=== PATIENT | male | born 1955 | race Hispanic/Latino ===

== ENCOUNTER 2021-03-29 01:33 | Inpatient (IN) | payer SELFPAY ==
[2021-03-29] MEDS ORDERED: HYDROmorphone 1 MG/1 ML INJ IV NR (02:02)
[2021-03-29] MEDS ORDERED: ONDANSETRON 4 MG/2 ML INJ IV NR (02:02)
--- NOTE | 2021-03-29 02:10 | Emergency Department Report ---
ED Abdominal Pain HPI - General Chief Complaint: Abdominal Pain Stated Complaint: ABD PAIN PUI?: No Time Seen by Provider: 03/29/21 02:01 Source: patient, family, EMS Mode of arrival: Stretcher Limitations: Other - History of Present Illness Initial Comments: Patient is a 66-year-old male who presents emergency room with complaints of generalized abdominal pain. Patient states it started at 1030. Patient states the pain is worsening. Patient states the pain is severe and is a 10 out of 10. Patient states that the patient also had nausea and vomiting. Patient states he was running complaint and his pain instantly started. Patient denies constipation. Patient denies blood in vomitus. Patient denies recent travel. Patient denies recent international travel. Patient denies exposure to the novel coronavirus. Patient denies sick contacts. Patient denies fever and chills. Patient denies cough. Patient denies diarrhea. Patient denies coming in contact with anybody with symptoms of the novel coronavirus. MD Complaint: abdominal pain -: Sudden Location: diffuse Radiation: none Migration to: no migration Severity: severe Severity scale (0 -10): 10 Quality: stabbing Consistency: constant Improves With: rest Worsens With: vomiting, movement, other (Palpation) Associated Symptoms: nausea, vomiting. denies: diarrhea, fever, chills, constipation, dysuria, hematemesis, hematochezia, melena, hematuria, anorexia, syncope - Related Data Home Medications Medication Instructions Recorded Confirmed Last Taken Amiodarone [Cordarone 200 MG TAB] 100 mg PO DAILY 03/29/21 03/29/21 03/28/21 Allergies Allergy/AdvReac Type Severity Reaction Status Date / Time No Known Allergies Allergy Verified 03/29/21 02:38 ED Review of Systems ROS: Stated complaint: ABD PAIN Other details as noted in HPI Constitutional: denies: chills, fever Eyes: denies: eye pain, eye discharge, vision change ENT: denies: ear pain, throat pain Respiratory: denies: cough, shortness of breath, wheezing Cardiovascular: denies: chest pain, palpitations Endocrine: no symptoms reported Gastrointestinal: as per HPI, abdominal pain, nausea, vomiting. denies: diarrhea Genitourinary: denies: urgency, dysuria Musculoskeletal: denies: back pain, joint swelling, arthralgia Skin: denies: rash, lesions Neurological: denies: headache, weakness, paresthesias Psychiatric: denies: anxiety, depression Hematological/Lymphatic: denies: easy bleeding, easy bruising ED Past Medical Hx - Past Medical History Previous Medical History?: Yes Hx Hypertension: Yes Additional medical history: Atrial fibrillation - Surgical History Past Surgical History?: No - Family History Family history: no significant - Social History Smoking Status: Never Smoker Substance Use Type: None - Medications Home Medications: Home Medications Medication Instructions Recorded Confirmed Last Taken Type Amiodarone [Cordarone 200 MG TAB] 100 mg PO DAILY 03/29/21 03/29/21 03/28/21 History ED Physical Exam - General Limitations: No Limitations General appearance: alert, in no apparent distress - Head Head exam: Present: atraumatic, normocephalic - Eye Eye exam: Present: normal appearance - ENT ENT exam: Present: mucous membranes moist - Neck Neck exam: Present: normal inspection - Respiratory Respiratory exam: Present: normal lung sounds bilaterally. Absent: respiratory distress, wheezes, rales - Cardiovascular Cardiovascular Exam: Present: regular rate, normal rhythm. Absent: systolic murmur, diastolic murmur, rubs, gallop - GI/Abdominal GI/Abdominal exam: Present: soft, tenderness, normal bowel sounds - Rectal Rectal exam: Present: deferred - Extremities Exam Extremities exam: Present: normal inspection - Back Exam Back exam: Present: normal inspection - Neurological Exam Neurological exam: Present: alert, oriented X3 - Psychiatric Psychiatric exam: Present: normal affect, normal mood - Skin Skin exam: Present: warm, dry, intact, normal color. Absent: rash ED Course Vital Signs 03/29/21 03/29/21 03/29/21 02:20 02:30 03:01 Temperature Pulse Rate 83 71 75 Respiratory 17 21 17 Rate Blood Pressure 184/87 184/87 Blood Pressure [Left] O2 Sat by Pulse 97 97 89 Oximetry 03/29/21 03/29/21 03/29/21 03:25 03:31 04:01 Temperature 97.7 F Pulse Rate 70 71 74 Respiratory 15 17 20 Rate Blood Pressure 173/103 173/103 Blood Pressure 184/87 [Left] O2 Sat by Pulse 94 88 93 Oximetry 03/29/21 03/29/21 03/29/21 04:31 05:01 05:31 Temperature Pulse Rate 80 96 H 93 H Respiratory 21 18 17 Rate Blood Pressure 173/103 173/103 173/103 Blood Pressure [Left] O2 Sat by Pulse 95 86 83 L Oximetry 03/29/21 03/29/21 06:01 06:31 Temperature Pulse Rate 88 102 H Respiratory 18 18 Rate Blood Pressure 173/103 129/66 Blood Pressure [Left] O2 Sat by Pulse 86 86 Oximetry - Reevaluation(s) Reevaluation #1: Patient states his abdominal pain is little better. Patient dates his nausea is better. 03/29/21 03:08 Reevaluation #2: I discussed all results with patient. I discussed plan of care with patient. Patient agrees with plan of care and admission. Patient to be admitted to the hospitalist service. Patient will be placed on a nicardipine drip for blood pressure management. Patient will be given Zofran for nausea. 03/29/21 04:10 - Consultations Consultation #1: I discussed with Dr. De Anda, vascular surgery. Dr. De Anda wants patient admitted and placed on nicardipine drip to bring the blood pressure down. 03/29/21 04:05 Consultation #2: Hospitalist consulted for admission. Hospitalist to admit patient. 03/29/21 04:11 ED Medical Decision Making - Lab Data Result diagrams: 03/29/21 02:17 03/29/21 02:17 - Radiology Data Radiology results: report reviewed CT ABDOMEN AND PELVIS WITH CONTRAST INDICATION: Abdominal Pain, back pain CONTRAST: 100 cc Omnipaque 300 IV COMPARISON: None available. All CT scans at this location are performed using CT dose reduction for ALARA by means of automated exposure control. FINDINGS: Prominent lumbar degenerative changes are seen. Mild loss of height of the L4 vertebral body is likely old. Lung bases show moderate atelectatic changes. I cannot exclude mild pneumonitis. No pneumoperitoneum is seen. Mild fatty infiltration of the liver is noted without obvious focal lesion. Liver is mildly enlarged and has a length of 19.2 cm. Spleen is not enlarged. Gallstones are seen without obvious acute change. No biliary dilatation is noted. I see no abnormalities of the pancreas, adrenals, or kidneys. No urinary obstructive changes are seen. No evidence of bowel obstruction is noted. Appendix is not visualized. Laboratory changes are seen. No free fluid is noted. Visualized portions of the mid to lower descending aorta show a moderate dissection with opacification of both lumens to some degree but more prominently in the larger lumen. Continues below the diaphragm to the mid aortic level immediately below the level of the renal arteries. Visualized portions of the proximal to mid descending aorta do not show evidence of dissection. The dissection appears to extend slightly into the proximal segment of the superior mesenteric artery but this is well opacified. The larger of the 2 lumens appears to supply the celiac axis and the smaller of the 2 lumens appears to be the main supply for the superior mesenteric artery and also supply the renal arteries bilaterally. The inferior mesenteric artery is opacified but is below the level of the dissection. 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 Good flow is seen distally. IMPRESSION: 1. Dissection of the visualized portions of the descending thoracic aorta and upper to mid abdominal aorta as above 2. Small area of dissection of a dilated left common iliac artery 3. Good blood flow is seen to all major vessels 4. Cholelithiasis without acute change seen - Medical Decision Making Patient is a 66-year-old male that presents emergency room with complaints of generalized abdominal pain. Patient states his abdominal pain started after getting upset. Patient also complained of nausea and vomiting. Patient found to have high blood pressure patient patient has a history of high blood pressure that is diet controlled and atrial fibrillation that is controlled on amiodarone. Patient had labs done which were essentially unremarkable. Patient had a CT scan of the abdomen with IV contrast and it shows a thoracic abdominal aortic dissection. Patient's CT also showed adequate blood flow in all the subsidiary arteries. The radiologist called me with the stat report. After the C T came back, I discussed the case with vascular surgery and vascular surgery gave recommendations. Vascular surgery recommends admission and placed on a nicardipine drip for blood pressure management. Respiratory recommends admission to the general medicine team. Patient admitted to the hospital service for further evaluation and treatment. Prior to admission, the patient was placed on nicardipine. Patient was given Zofran and Dilaudid for pain. Critical care time documented due to the multiple reassessments, prolonged time at the bedside, interpretation of diagnostics and labs. - Differential Diagnosis Abdominal pain, anxiety, nausea, vomiting, gastroenteritis, Critical Care Time: Yes Critical care time in (mins) excluding proc time.: 35 Critical care attestation.: If time is entered above; I have spent that time in minutes in the direct care of this critically ill patient, excluding procedure time. Critical Care Time: 35 minutes ED Disposition Clinical Impression: Aortic dissection Qualifiers: Aortic location: thoracoabdominal aorta Qualified Code(s): I71.03 - Dissection of thoracoabdominal aorta Abdominal pain Qualifiers: Abdominal location: generalized Qualified Code(s): R10.84 - Generalized abdominal pain Nausea & vomiting Qualifiers: Vomiting type: unspecified Vomiting Intractability: intractable Qualified Code(s): R11.2 - Nausea with vomiting, unspecified Disposition: 09 ADMITTED INPATIENT Is pt being admited?: Yes Does the pt Need Aspirin: No Condition: Critical Time of Disposition: 04:14
[2021-03-29 02:34] LABS: Basophils % (Auto) 0.1 % (0.0-1.8); Eosinophils % (Auto) 0.1 % (0.0-4.3); Hematocrit 42.9 % (35.5-45.6); Hemoglobin 14.6 gm/dl (11.8-15.2); Lymphocytes # (Auto) 1.3 K/mm3 (1.2-5.4); Lymphocytes % (Auto) 8.5 % (13.4-35.0); Mean Corpuscular HGB Conc 34 % (32-34); Mean Corpuscular Volume 91 fl (84-94); Monocytes # (Auto) 1.1 K/mm3 (0.0-0.8); Monocytes % (Auto) 7.1 % (0.0-7.3); Platelet Count 144 K/mm3 (140-440); Red Cell Distribution Width 13.5 % (13.2-15.2)
[2021-03-29 02:57] LABS: Alanine Aminotransferase 19 units/L (7-56); Albumin 4.4 g/dL (3.9-5); BUN/Creatinine Ratio 16; Blood Urea Nitrogen 16 mg/dL (9-20); Hemolysis Index 11
[2021-03-29 02:59] LABS: Bilirubin,Direct < 0.2 mg/dL (0-0.2)
--- NOTE | 2021-03-29 03:48 | Cat Scan Report ---
CT ABDOMEN AND PELVIS WITH CONTRAST INDICATION: Abdominal Pain, back pain CONTRAST: 100 cc Omnipaque 300 IV COMPARISON: None available. All CT scans at this location are performed using CT dose reduction for ALARA by means of automated e xposure control. FINDINGS: Prominent lumbar degenerative changes are seen. Mild loss of height of the L4 vertebral bod y is likely old. Lung bases show moderate atelectatic changes. I cannot exclude mild pneumonitis. No pneumoperitoneum is seen. Mild fatty infiltration of the liver is noted without obvious focal lesi on. Liver is mildly enlarged and has a length of 19.2 cm. Spleen is not enlarged. Gallstones are seen without obvious acute change. No biliary dilatation is noted. I see no abnormalities of the pancreas , adrenals, or kidneys. No urinary obstructive changes are seen. No evidence of bowel obstruction is noted. Appendix is not visualized. Laboratory changes are seen. No free fluid is noted. Visualized portions of the mid to lower descending aorta show a moderate dissection with opacificatio n of both lumens to some degree but more prominently in the larger lumen. Continues below the diaphra gm to the mid aortic level immediately below the level of the renal arteries. Visualized portions of the proximal to mid descending aorta do not show evidence of dissection. The dissection appears to ex tend slightly into the proximal segment of the superior mesenteric artery but this is well opacified. The larger of the 2 lumens appears to supply the celiac axis and the smaller of the 2 lumens appears to be the main supply for the superior mesenteric artery and also supply the renal arteries bilatera lly. The inferior mesenteric artery is opacified but is below the level of the dissection. There is a neurysmal dilatation of the left common iliac artery to a diameter of 2.3 cm and this area also appea rs to show a short segment of dissection along the anterior aspect. Good flow is seen distally. IMPRESSION: 1. Dissection of the visualized portions of the descending thoracic aorta and upper to mid abdominal aorta as above 2. Small area of dissection of a dilated left common iliac artery 3. Good blood flow is seen to all major vessels 4. Cholelithiasis without acute change seen IMPORTANT FINDING: Time of Communication (RAIL SWITCH OPERATOR/CDT): 0240 Licensed Practitioner Receiving Report: Dr. Delong Signer Name: Jose Liu MD Signed: 03/29/2021 3:44 AM Workstation Name: [id number]
[2021-03-29] MEDS ORDERED: niCARdipine DRIP 40 MG/200 ML BAG IV ONE (04:06)
[2021-03-29] MEDS ORDERED: ONDANSETRON 4 MG/2 ML INJ IV ONE (04:08)
[2021-03-29] MEDS ORDERED: ACETAMINOPHEN 325 MG TAB PO PRN (04:44)
[2021-03-29] MEDS ORDERED: ALBUTEROL 2.5 MG/3 ML NEBU IH PRN (04:44)
[2021-03-29] MEDS ORDERED: oxyCODONE /ACETAMINOPHEN 5-325MG TAB PO PRN (04:44)
[2021-03-29] MEDS ORDERED: ONDANSETRON 4 MG/2 ML INJ IV PRN (04:44)
--- NOTE | 2021-03-29 04:51 | History and Physical Report ---
History of Present Illness Date of examination: 03/29/21 Date of admission: 03/29/21 Chief complaint: Abdominal pain History of present illness: 66-year-old male with past medical history of hypertension was brought to the emergency room because of generalized abdominal pain since 0. Patient states the pain is worsening. Patient states the pain is severe and is a 10 out of 10. Patient states that the patient also had nausea and vomiting. Patient states he was running complaint and his pain instantly started. Patient denies constipation. Patient denies blood in vomitus. In the emergency room patient had a CT scan of the abdomen and pelvis which indio wed dissection of the visualized portion of the mid and lower descending thoracic aorta and upper to mid abdominal aorta. A small area of dissection of dilated late common iliac artery. Good blood flow is seen in to all major vessels. Subsequently Case was discussed with vascular surgeon Dr. Coronado who recommended to put the patient in ICU. We will put the patient on a Cardene drip. Vascular surgeon will see the patient for possible intervention in the morning. Case discussed with critical care Dr. Sesay Past History Past Medical History: atrial fib, hypertension Medications and Allergies Allergies Allergy/AdvReac Type Severity Reaction Status Date / Time No Known Allergies Allergy Verified 03/29/21 02:38 Active Meds: Active Medications Nicardipine/Sodium Chloride (Cardene Drip 40 Mg/200 Ml) 40 mg in 200 mls @ 25 mls/hr IV ONCE ONE; Protocol Stop: 03/29/21 12:05 Last Admin: 03/29/21 04:33 Dose: 5 mg/hr, 25 mls/hr Documented by: Review of Systems All systems: negative Gastrointestinal: abdominal pain, nausea, vomiting Exam - Constitutional Vitals: Temp Pulse Resp BP Pulse Ox 97.7 F 70 20 184/87 94 03/29/21 03:25 03/29/21 03:25 03/29/21 04:01 03/29/21 03:25 03/29/21 04:01 General appearance: Present: no acute distress, well-nourished - EENT Eyes: Present: PERRL ENT: hearing intact, clear oral mucosa - Neck Neck: Present: supple, normal ROM - Respiratory Respiratory effort: normal Respiratory: bilateral: CTA - Cardiovascular Heart Sounds: Present: S1 & S2. Absent: rub, click - Extremities Extremities: pulses symmetrical, No edema Peripheral Pulses: within normal limits - Abdominal General gastrointestinal: Present: soft, tender, non-distended, normal bowel sounds Male genitourinary: Present: normal - Integumentary Integumentary: Present: clear, warm, dry - Musculoskeletal Musculoskeletal: gait normal, strength equal bilaterally - Psychiatric Psychiatric: appropriate mood/affect, intact judgment & insight - Neurologic Neurologic: CNII-XII intact, moves all extremities Results - Labs CBC & Chem 7: 03/29/21 02:17 03/29/21 02:17 Labs: Laboratory Last Values WBC 15.1 K/mm3 (4.5-11.0) H 03/29/21 02:17 RBC 4.70 M/mm3 (3.65-5.03) 03/29/21 02:17 Hgb 14.6 gm/dl (11.8-15.2) 03/29/21 02:17 Hct 42.9 % (35.5-45.6) 03/29/21 02:17 MCV 91 fl (84-94) 03/29/21 02:17 MCH 31 pg (28-32) 03/29/21 02:17 MCHC 34 % (32-34) 03/29/21 02:17 RDW 13.5 % (13.2-15.2) 03/29/21 02:17 Plt Count 144 K/mm3 (140-440) 03/29/21 02:17 Lymph % (Auto) 8.5 % (13.4-35.0) L 03/29/21 02:17 [place] % (Auto) 7.1 % (0.0-7.3) 03/29/21 02:17 Eos % (Auto) 0.1 % (0.0-4.3) 03/29/21 02:17 Baso % (Auto) 0.1 % (0.0-1.8) 03/29/21 02:17 Lymph # (Auto) 1.3 K/mm3 (1.2-5.4) 03/29/21 02:17 [place] # (Auto) 1.1 K/mm3 (0.0-0.8) H 03/29/21 02:17 Eos # (Auto) 0.0 K/mm3 (0.0-0.4) 03/29/21 02:17 Baso # (Auto) 0.0 K/mm3 (0.0-0.1) 03/29/21 02:17 Seg Neutrophils % 84.2 % (40.0-70.0) H 03/29/21 02:17 Seg Neutrophils # 12.7 K/mm3 (1.8-7.7) H 03/29/21 02:17 Sodium 140 mmol/L (137-145) 03/29/21 02:17 Potassium 4.0 mmol/L (3.6-5.0) 03/29/21 02:17 Chloride 102.4 mmol/L (98-107) 03/29/21 02:17 Carbon Dioxide 25 mmol/L (22-30) 03/29/21 02:17 Anion Gap 17 mmol/L 03/29/21 02:17 BUN 16 mg/dL (9-20) 03/29/21 02:17 Creatinine 1.0 mg/dL (0.8-1.3) 03/29/21 02:17 Estimated GFR > 60 ml/min 03/29/21 02:17 BUN/Creatinine Ratio 16 % 03/29/21 02:17 Glucose 179 mg/dL (75-100) H 03/29/21 02:17 Calcium 9.0 mg/dL (8.4-10.2) 03/29/21 02:17 Total Bilirubin 0.50 mg/dL (0.1-1.2) 03/29/21 02:17 Direct Bilirubin < 0.2 mg/dL (0-0.2) 03/29/21 02:17 Indirect Bilirubin 0.3 mg/dL 03/29/21 02:17 AST 21 units/L (5-40) 03/29/21 02:17 ALT 19 units/L (7-56) 03/29/21 02:17 Alkaline Phosphatase 74 units/L (35-129) 03/29/21 02:17 Total Protein 7.2 g/dL (6.3-8.2) 03/29/21 02:17 Albumin 4.4 g/dL (3.9-5) 03/29/21 02:17 Albumin/Globulin Ratio 1.6 % 03/29/21 02:17 Lipase 13 units/L (13-60) 03/29/21 02:17 - Imaging and Cardiology CT scan - abdomen: report reviewed Assessment and Plan VTE prophylaxis?: Mechanical Plan of care discussed with patient/family: Yes - Patient Problems (1) Aortic dissection Current Visit: Yes Status: Acute Qualifiers: Aortic location: thoracoabdominal aorta Qualified Code(s): I71.03 - Dissection of thoracoabdominal aorta Plan to address problem: Admit the patient to the ICU. N.p.o. Half-normal saline at the rate of 100 cc/h. We will put the patient on nicardipine drip. We consulted vascular surgeon to see the patient for possible intervention. We also consulted critical care evaluation. We will monitor the patient closely. Recheck CBC BMP in the morning. Prognosis is guarded (2) Hypertension Current Visit: Yes Status: Acute Plan to address problem: Put the patient on nicardipine drip. We will monitor the blood pressure pressure closely. We also continue home medication (3) Abdominal pain Current Visit: Yes Status: Acute Qualifiers: Abdominal location: generalized Qualified Code(s): R10.84 - Generalized abdominal pain Plan to address problem: NPO. IV fluid half-normal saline at the rate of 100 cc/h. Pepcid 20 mg IV every 12 hours. Zofran 4 mg IV every 6 hours as needed. Dilaudid 0.5 mg IV every 3 hours as needed (4) Nausea & vomiting Current Visit: Yes Status: Acute Qualifiers: Vomiting type: unspecified Vomiting Intractability: intractable Qualified Code(s): R11.2 - Nausea with vomiting, unspecified Plan to address problem: NPO. Half-normal saline at the rate of 100 cc/h. Pepcid 20 mg IV every 12 hours. Zofran 4 mg IV every 6 hours as needed (5) Full code status Current Visit: Yes Status: Acute Plan to address problem: Patient is a full code. Prognosis is guarded (6) DVT prophylaxis Current Visit: Yes Status: Acute Plan to address problem: SCD for DVT prophylaxis. Pepcid 20 mg IV every 12 hours for GI prophylaxis
[2021-03-29] MEDS ORDERED: SODIUM CHLORIDE 0.45% 1000 ML 1,000 ML IV SCH (05:00)
--- NOTE | 2021-03-29 08:48 | Progress Note ---
Assessment and Plan Assessment and plan: --Descending aortic dissection Current Visit: Yes Status: Acute Admit the patient to the ICU. Continue nicardipine drip. vascular surgeon consulted by admitting physician Critical care consulted by admitting physician Stat CTA chest and CTA abdomen to evaluate thoracic and abdominal aorta --Hypertension Current Visit: Yes Status: Acute Patient is on nicardipine drip. Maintain blood pressures less than 120/80 And heart rate less than 70/min --History of atrial fibrillation; Current Visit: Yes Status: Chronic On amiodarone at home Patient is currently n.p.o. status --Abdominal pain Current Visit: Yes Status: Acute Pain management IV fluids IV Protonix and supportive care --Nausea & vomiting Current Visit: Yes Status: Acute Antiemetics, Protonix --Obesity; BMI 32.9; Current Visit: Yes Status: Chronic Patient may need weight reduction when he is medically stable --Full code status --DVT prophylaxis Current Visit: Yes Status: Acute SCD We will closely monitor the patient and adjust the management as needed Plan of care reviewed with the patient and his nurse Follow vascular evaluation recommendations History Interval history: I have seen and examined the patient at the bedside in ER awaiting ICU room assignment Patient's chart and medications reviewed Patient feels better has no new complaints slightly anxious Vital signs noted Hospitalist Physical - Constitutional Vitals: Temp Pulse Resp BP Pulse Ox 97.7 F 102 H 18 129/66 86 03/29/21 03:25 03/29/21 06:31 03/29/21 06:31 03/29/21 06:31 03/29/21 06:31 General appearance: Present: no acute distress, well-nourished - EENT Eyes: Present: PERRL, EOM intact - Neck Neck: Present: supple, normal ROM - Respiratory Respiratory effort: normal Respiratory: bilateral: diminished, negative: rales, rhonchi, wheezing - Cardiovascular Rhythm: regular Heart Sounds: Present: S1 & S2 - Extremities Extremities: no ischemia, No edema - Abdominal General gastrointestinal: soft, non-tender, non-distended, normal bowel sounds - Integumentary Integumentary: Present: clear, warm - Psychiatric Psychiatric: appropriate mood/affect, cooperative - Neurologic Neurologic: CNII-XII intact, moves all extremities Results - Labs CBC & Chem 7: 03/29/21 02:17 03/29/21 02:17 Labs: Laboratory Last Values WBC 15.1 K/mm3 (4.5-11.0) H 03/29/21 02:17 RBC 4.70 M/mm3 (3.65-5.03) 03/29/21 02:17 Hgb 14.6 gm/dl (11.8-15.2) 03/29/21 02:17 Hct 42.9 % (35.5-45.6) 03/29/21 02:17 MCV 91 fl (84-94) 03/29/21 02:17 MCH 31 pg (28-32) 03/29/21 02:17 MCHC 34 % (32-34) 03/29/21 02:17 RDW 13.5 % (13.2-15.2) 03/29/21 02:17 Plt Count 144 K/mm3 (140-440) 03/29/21 02:17 Lymph % (Auto) 8.5 % (13.4-35.0) L 03/29/21 02:17 [place] % (Auto) 7.1 % (0.0-7.3) 03/29/21 02:17 Eos % (Auto) 0.1 % (0.0-4.3) 03/29/21 02:17 Baso % (Auto) 0.1 % (0.0-1.8) 03/29/21 02:17 Lymph # (Auto) 1.3 K/mm3 (1.2-5.4) 03/29/21 02:17 [place] # (Auto) 1.1 K/mm3 (0.0-0.8) H 03/29/21 02:17 Eos # (Auto) 0.0 K/mm3 (0.0-0.4) 03/29/21 02:17 Baso # (Auto) 0.0 K/mm3 (0.0-0.1) 03/29/21 02:17 Seg Neutrophils % 84.2 % (40.0-70.0) H 03/29/21 02:17 Seg Neutrophils # 12.7 K/mm3 (1.8-7.7) H 03/29/21 02:17 Sodium 140 mmol/L (137-145) 03/29/21 02:17 Potassium 4.0 mmol/L (3.6-5.0) 03/29/21 02:17 Chloride 102.4 mmol/L (98-107) 03/29/21 02:17 Carbon Dioxide 25 mmol/L (22-30) 03/29/21 02:17 Anion Gap 17 mmol/L 03/29/21 02:17 BUN 16 mg/dL (9-20) 03/29/21 02:17 Creatinine 1.0 mg/dL (0.8-1.3) 03/29/21 02:17 Estimated GFR > 60 ml/min 03/29/21 02:17 BUN/Creatinine Ratio 16 % 03/29/21 02:17 Glucose 179 mg/dL (75-100) H 03/29/21 02:17 Calcium 9.0 mg/dL (8.4-10.2) 03/29/21 02:17 Total Bilirubin 0.50 mg/dL (0.1-1.2) 03/29/21 02:17 Direct Bilirubin < 0.2 mg/dL (0-0.2) 03/29/21 02:17 Indirect Bilirubin 0.3 mg/dL 03/29/21 02:17 AST 21 units/L (5-40) 03/29/21 02:17 ALT 19 units/L (7-56) 03/29/21 02:17 Alkaline Phosphatase 74 units/L (35-129) 03/29/21 02:17 Total Protein 7.2 g/dL (6.3-8.2) 03/29/21 02:17 Albumin 4.4 g/dL (3.9-5) 03/29/21 02:17 Albumin/Globulin Ratio 1.6 % 03/29/21 02:17 Lipase 13 units/L (13-60) 03/29/21 02:17 Active Medications - Current Medications Current Medications: Generic Name Dose Route Start Last Admin Trade Name Freq PRN Reason Stop Dose Admin Acetaminophen 650 mg 03/29/21 04:44 Acetaminophen 325 Mg Tab PO Q4H PRN Pain MILD(1-3)/Fever >100.5/AVILA Albuterol 2.5 mg 03/29/21 04:44 Albuterol 2.5 Mg/3 Ml Nebu IH Q4HRT PRN Shortness Of Breath Albuterol/Ipratropium 1 ampul 03/29/21 08:00 Ipratropium/Albuterol Sulfate 3 Ml Ampul.Neb IH Q6HRT BRIAN Famotidine 20 mg 03/29/21 10:00 Famotidine 20 Mg/2 Ml Inj IV BID BRIAN Hydromorphone HCl 0.5 mg 03/29/21 04:44 Hydromorphone 1 Mg/1 Ml Inj IV Q3H PRN Pain , Severe (7-10) Nicardipine/Sodium Chloride 40 mg in 200 mls @ 25 mls/hr 03/29/21 04:06 03/29/21 06:41 Cardene Drip 40 Mg/200 Ml IV 03/29/21 12:05 5 mg/hr ONCE ONE 25 mls/hr Titration Protocol 5 MG/HR Sodium Chloride 1,000 mls @ 100 mls/hr 03/29/21 05:00 Nacl 0.45% 1000 Ml IV DIRECT BRIAN Ondansetron HCl 4 mg 03/29/21 04:44 Ondansetron 4 Mg/2 Ml Inj IV Q8H PRN Nausea And Vomiting Oxycodone/Acetaminophen 1 tab 03/29/21 04:44 Oxycodone /Acetaminophen 5-325mg Tab PO Q6H PRN Pain, Moderate (4-6) Sodium Chloride 10 ml 03/29/21 10:00 Sodium Chloride 0.9% 10 Ml Flush Syringe IV BID BRIAN Sodium Chloride 10 ml 03/29/21 04:44 Sodium Chloride 0.9% 10 Ml Flush Syringe IV PRN PRN LINE FLUSH
[2021-03-29] MEDS: IPRATROPIUM/ALBUTEROL SULFATE 3 ML AMPUL.NEB IH SCH ×2 (09:08→14:16)
[2021-03-29] MEDS: FAMOTIDINE 20 MG/2 ML INJ IV SCH ×2 (10:07→23:00)
--- NOTE | 2021-03-29 14:28 | Consultation ---
History of Present Illness - Reason for Consult Consult date: 03/29/21 Aortic Dissection Requesting physician: MALVIN LAYNE III - History of Present Illness The patient is a 66-year-old male traveling here from [place] who was running to the airport to catch his plane however his attempts were unsuccessful. He became upset, which likely elevated his blood pressure, and he developed severe abdominal pain. He was eventually transported to a hotel and then eventually to the emergency department secondary to his severe abdominal and back pain. Initially he had a CTA of his abdomen pelvis which demonstrated an aortic dissection involving the descending aorta and extending to the level of the renal arteries. There was no evidence of vascular compromise in all visceral vessels appeared to have adequate flow. The patient denies any nausea, vomiting, diarrhea, bright red blood per rectum, or melena. He underwent a CTA of his chest which confirms there is no involvement of the ascending aorta. There is slight extension into the left subclavian artery however it does not extend distally and there is no compromise of flow into the vertebral artery. At this time he continues to complain of some abdominal and lower back pain but he has no additional complaints at this time. Past History Past Medical History: atrial fib, hypertension Past Surgical History: No surgical history Social history: . denies: smoking Family history: no significant family history Medications and Allergies Allergies Allergy/AdvReac Type Severity Reaction Status Date / Time No Known Allergies Allergy Verified 03/29/21 02:38 Home Medications Medication Instructions Recorded Confirmed Last Taken Type Amiodarone [Cordarone 200 MG TAB] 100 mg PO DAILY 03/29/21 03/29/21 03/28/21 History Active Meds: Active Medications Acetaminophen (Acetaminophen 325 Mg Tab) 650 mg PO Q4H PRN PRN Reason: Pain MILD(1-3)/Fever >100.5/AVILA Albuterol (Albuterol 2.5 Mg/3 Ml Nebu) 2.5 mg IH Q4HRT PRN PRN Reason: Shortness Of Breath Albuterol/Ipratropium (Ipratropium/Albuterol Sulfate 3 Ml Ampul.Neb) 1 ampul IH Q6HRT [facility] Last Admin: 03/29/21 14:16 Dose: 1 ampul Documented by: Famotidine (Famotidine 20 Mg/2 Ml Inj) 20 mg IV BID [facility] Last Admin: 03/29/21 10:07 Dose: 20 mg Documented by: Hydromorphone HCl (Hydromorphone 1 Mg/1 Ml Inj) 0.5 mg IV Q3H PRN PRN Reason: Pain , Severe (7-10) Sodium Chloride (Nacl 0.45% 1000 Ml) 1,000 mls @ 100 mls/hr IV DIRECT BRIAN Ondansetron HCl (Ondansetron 4 Mg/2 Ml Inj) 4 mg IV Q8H PRN PRN Reason: Nausea And Vomiting Oxycodone/Acetaminophen (Oxycodone /Acetaminophen 5-325mg Tab) 1 tab PO Q6H PRN PRN Reason: Pain, Moderate (4-6) Sodium Chloride (Sodium Chloride 0.9% 10 Ml Flush Syringe) 10 ml IV BID BRIAN Last Admin: 03/29/21 10:07 Dose: 10 ml Documented by: Sodium Chloride (Sodium Chloride 0.9% 10 Ml Flush Syringe) 10 ml IV PRN PRN PRN Reason: LINE FLUSH Review of Systems All systems: negative Exam - Constitutional Vitals: Temp Pulse Resp BP Pulse Ox 97.7 F 105 H 19 141/88 94 03/29/21 03:25 03/29/21 12:14 03/29/21 12:14 03/29/21 12:14 03/29/21 12:14 General appearance: Present: no acute distress - Neck Neck: Present: supple - Respiratory Respiratory effort: normal - Cardiovascular Heart rate: 90 Rhythm: regular - Extremities Extremities: no ischemia, pulses intact (Palpable radial pulses bilaterally and palpable DP and PT bilaterally) - Abdominal General gastrointestinal: Present: soft, non-tender, non-distended Male genitourinary: Present: deferred - Rectal Rectal Exam: deferred - Musculoskeletal Musculoskeletal: strength equal bilaterally - Psychiatric Psychiatric: appropriate mood/affect, intact judgment & insight, cooperative - Neurologic Neurologic: no focal deficits Results - Labs CBC & Chem 7: 03/29/21 02:17 03/29/21 02:17 Labs: Abnormal lab results 03/29/21 03/29/21 Range/Units 02:17 02:17 WBC 15.1 H (4.5-11.0) K/mm3 Lymph % (Auto) 8.5 L (13.4-35.0) % [place] # (Auto) 1.1 H (0.0-0.8) K/mm3 Seg Neutrophils % 84.2 H (40.0-70.0) % Seg Neutrophils # 12.7 H (1.8-7.7) K/mm3 Glucose 179 H (75-100) mg/dL - Imaging and Cardiology CT scan - abdomen: image reviewed CT scan - chest: image reviewed CT scan - pelvis: image reviewed Assessment and Plan The patient is a 66-year-old male who presented with acute abdominal and back pain and was found to have an aortic dissection extending from the left subclavian artery to the level of the renal arteries. Although he continues to complain of some abdominal and back pain he states that it is improved from his initial presentation. He has no evidence of end organ compromise both on CT scan and clinically. The initial management of an acute aortic dissection without vascular compromise is medical management with "Anti-impulse therapy" to reduce the wall stress of the aorta and prevent propagation of the dissection. This will also help with his pain as his pain is secondary to pressure on the false lumen of the dissection. He currently is on a nicardipine drip however his heart rate remains in the 80s to 90s with a systolic blood pressure in the 150s and 160s. The goal of therapy should be to have a heart rate below 70 and a blood pressure of 120/80 or less. The best initial IV drip is an esmolol drip until the goal heart rate and blood pressure are met. Once they are met oral medications are started and adjusted until the drips can be weaned off. Typically oral labetalol is used secondary to its antagonistic actions against alpha-1, beta-1, and beat-2 adrenergic receptors. I discussed the case and plan with Dr Collazo who will adjust the medications for now. I also discussed the plan with the patient who expressed understanding and agrees with the plan. I will continue to follow the patient. If there is a clinical change to suggest vascular compromise he will require re-imaging and possible intervention if there is propagation of the dissection distally or into any of his visceral vessels. This is a complex tear and would require repair at a tertiary center.
--- NOTE | 2021-03-29 14:56 | Event Note ---
Date: 03/29/21 Vascular evaluation noted and appreciated Discussed the case with vascular surgeon Dr. Suresh De Anda; Recommended esmolol drip to maintain blood pressures less than 120/80 And heart rate less than 70/min, patient will be closely monitored in ICU We will follow with CTA chest and CT abdomen for any acute abnormalities Closely monitor blood pressures and heart rate and adjust the meds as needed. We will transition to oral labetalol when patient's blood pressures and heart rate Are within the above range
--- NOTE | 2021-03-29 15:03 | Cat Scan Report ---
CTA CHEST, ABDOMEN, AND PELVIS WITHOUT AND WITH CONTRAST INDICATION / CLINICAL INFORMATION: Abdominal aortic aneurysm on CT abdomen and pelvis 100 ML OMNI 35 0 . TECHNIQUE: Axial CT images were obtained through the chest, abdomen, and pelvis after injection of IV contrast. 3 plane MIP and/or 3D reconstructions were produced. All CT scans at this location are per formed using CT dose reduction for ALARA by means of automated exposure control. COMPARISON: CT abdomen pelvis earlier on the same date FINDINGS: HEART: No significant abnormality. THORACIC AORTA: Dissection beginning in the distal aortic arch and extending throughout the distal descending thoraci c aorta. Dissection extends into the proximal left subclavian artery. Dissection does not extend into the proximal aortic arch or the ascending thoracic aorta. There is no aneurysmal dilatation of the t horacic aorta. GREAT VESSELS: Short segment dissection in the origin of the left subclavian artery. Dissection does not extend distally. Other great vessels show no acute abnormality. PULMONARY ARTERIES: No significant abnormality. ADDITIONAL CHEST FINDINGS: Bibasilar atelectasis. Lungs are otherwise clear. No significant pleural e ffusion. ABDOMINAL AORTA: Dissection extends from the distal descending thoracic aorta throughout the abdomen into the infrarenal abdominal aorta. Dissection in this just below the level of the renal arteries. N o aneurysmal dilatation. RENAL ARTERIES: Both renal arteries appear to arise from the true lumen. No dissection. CELIAC ARTERY: No dissection. Mildly dilated proximal celiac artery. SUPERIOR MESENTERIC ARTERY: Dissection extends to the origin of the SMA but not into the SMA itself. No stenosis or occlusion. INFERIOR MESENTERIC ARTERY: No significant abnormality. RIGHT ILIAC ARTERIES: Mildly tortuous but no dissection or other acute abnormality.. LEFT ILIAC ARTERIES: Aneurysmal dilatation of the left common Coronary measuring 2.3 cm in greatest transverse dimension. Mild atherosclerotic calcification.. ADDITIONAL ABDOMINOPELVIC FINDINGS: Hepatic steatosis and cholelithiasis as seen on prior CT. SKELETAL STRUCTURES: No significant abnormality. IMPRESSION: 1. 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 2. Dissection does not involve the ascending thoracic aorta. 3. Dissection extends into the origin of the left subclavian artery and the superior mesenteric arter y. No vessel occlusion or significant stenosis. 4. Left common iliac aneurysmal dilatation. Signer Name: Sandra Schroeder MD Signed: 03/29/2021 2:59 PM Workstation Name: [id number]
[2021-03-29] MEDS ORDERED: ESMOLOL DRIP 2.5 GM/250 ML BAG IV ONE ×2 (16:00→19:00)
--- NOTE | 2021-03-29 17:55 | Event Note ---
Date: 03/29/21 CTA chest and CTA abdomen reports reviewed; Type B thoracoabdominal aortic dissection beginning in the distal aortic arch and extending into the infrarenal abdominal aorta dissection does not involve the ascending thoracic aorta dissection extends into the origins of the left subclavian artery and the superior mesenteric artery no vessel occlusion or significant stenosis left common iliac aneurysmal dilatation, I called the on-call middleware solutions architect Dr. Jose Kaufman, requested the consult and discussed the findings of CTA chest and CT abdomen Patient is already on esmolol drip with blood pressures ranging 140-143 systolic and 66 -80 diastolic, Heart rate between 67-72 Dr. Kaufman agreed with esmolol drip and advised to continue current management add 1 dose of nifedipine 30 mg now and daily from tomorrow morning We will transition to oral labetalol when stable BP less than 120 systolic and heart rate less than 60/min are achieved. We will sign off to the covering hospitalist Dr. Palomino and night hospitalist Dr. Vale, I reviewed the plan of care with the patient and the patient's nurse Total critical care time today 75 minutes Total critical care time today is more than 75 minutes The high probability of a clinically significant, sudden or life threatening deterioration of the [[facility], vascular] system(s) required my full and direct attention, intervention and personal management. The aggregate critical care time was [75] minutes. This time is in addition to time spent performing reported procedures but includes the following: [x] Data Review and interpretation [x] Patient assessment and monitoring of vital signs [x] Documentation [x] Medication orders and management
[2021-03-29] MEDS ORDERED: NIFEdipine XL 30 MG TAB PO ONE (18:30)
[2021-03-29] MEDS ORDERED: ZOLPIDEM 5 MG TAB PO PRN (18:31)
[2021-03-30] MEDS: IPRATROPIUM/ALBUTEROL SULFATE 3 ML AMPUL.NEB IH SCH ×5 (02:02→20:42)
[2021-03-30 04:58] LABS: Basophils % (Auto) 0.1 % (0.0-1.8); Hematocrit 40.1 % (35.5-45.6); Hemoglobin 13.4 gm/dl (11.8-15.2); Lymphocytes # (Auto) 1.7 K/mm3 (1.2-5.4); Lymphocytes % (Auto) 10.2 % (13.4-35.0); Mean Corpuscular HGB Conc 34 % (32-34); Mean Corpuscular Volume 92 fl (84-94); Monocytes # (Auto) 2.1 K/mm3 (0.0-0.8); Monocytes % (Auto) 12.5 % (0.0-7.3); Platelet Count 156 K/mm3 (140-440); Red Blood Count 4.35 M/mm3 (3.65-5.03); Red Cell Distribution Width 13.7 % (13.2-15.2)
[2021-03-30 05:21] LABS: BUN/Creatinine Ratio 16; Blood Urea Nitrogen 16 mg/dL (9-20); Calcium 8.4 mg/dL (8.4-10.2); Hemolysis Index 2
[2021-03-30] MEDS: ESMOLOL DRIP 2.5 GM/250 ML BAG IV SCH ×6 (07:54→22:27)
--- NOTE | 2021-03-30 08:14 | Progress Note ---
Assessment and Plan Assessment and plan: For some unknown reasons [shortage of esmolol], the patient did not receive the drip briefly Now resumed. Titrate to heart rate less than 65 and systolic blood pressure to less than 120 --Type B thoracoabdominal aortic dissection ; Current Visit: Yes Status: Acute Patient is on esmolol drip per protocol, Titrate to systolic blood pressure less than 120 And heart rate less than 65 Patient's blood pressure this morning is 125/75 and heart rate 63/min vascular surgeon and cardiology following CTA chest and CTA abdomen; 03/29/2021 Type B thoracoabdominal aortic dissection beginning in the distal aortic arch and extending into the infrarenal abdominal aorta dissection does not involve the ascending thoracic aorta dissection extends into the origins of the left subclavian artery and the superior mesenteric artery no vessel occlusion or significant stenosis left common iliac aneurysmal dilatation, I consulted the on-call home health clinical liaison Dr. Jose Kaufman, [03/30/2021 evening] and discussed the findings of CTA chest and CT abdomen Patient is already on esmolol drip with blood pressures ranging 140-143 systolic and 66 -80 diastolic, Heart rate between 67-72 Dr. Kaufman agreed with esmolol drip and advised to continue current management Advised 30 mg of nifedipine daily, 1 dose given last evening We will transition to oral labetalol when stable BP less than 120 systolic and heart rate less than 60/min are achieved. --Hypertension Current Visit: Yes Status: Acute Patient is on esmolol drip, well controlled --History of atrial fibrillation; Current Visit: Yes Status: Chronic On amiodarone at home currently not taking Defer to home health clinical liaison to resume amiodarone --Abdominal pain Current Visit: Yes Status: Acute Due to aortic dissection now resolved --Nausea & vomiting Current Visit: Yes Status: Acute Resolved ,antiemetics as needed --Obesity; BMI 32.9; Current Visit: Yes Status: Chronic Patient may need weight reduction when he is medically stable --Full code status --DVT prophylaxis Current Visit: Yes Status: Acute SCD We will closely monitor the patient and adjust the management as needed Plan of care reviewed with the patient and his nurse Follow cardiology recommendations The high probability of a clinically significant, sudden or life threatening deterioration of the [[facility]S, vascular] system(s) required my full and direct attention, intervention and personal management. The aggregate critical care time was [45] minutes. This time is in addition to time spent performing reported procedures but includes the following: [x] Data Review and interpretation [x] Patient assessment and monitoring of vital signs [x] Documentation [x] Medication orders and management History Interval history: I have seen and examined the patient at the bedside Patient's chart and medications reviewed Patient feels better no new complaints Abdominal pain and back pain significantly improved On esmolol drip, blood pressures and heart rate still remains elevated vital signs noted Hospitalist Physical - Constitutional Vitals: Temp Pulse Resp BP Pulse Ox 98.8 F 63 16 125/75 95 03/30/21 07:08 03/30/21 06:01 03/30/21 06:01 03/30/21 06:01 03/30/21 06:01 General appearance: Present: no acute distress, well-nourished, other (Anxious to leave) - EENT Eyes: Present: PERRL, EOM intact - Neck Neck: Present: supple, normal ROM - Respiratory Respiratory effort: normal Respiratory: bilateral: diminished, negative: rales, rhonchi, wheezing - Cardiovascular Rhythm: regular Heart Sounds: Present: S1 & S2 - Extremities Extremities: no ischemia, No edema - Abdominal General gastrointestinal: soft, non-tender, non-distended, normal bowel sounds - Integumentary Integumentary: Present: clear, warm - Psychiatric Psychiatric: appropriate mood/affect, cooperative - Neurologic Neurologic: CNII-XII intact, moves all extremities Results - Labs CBC & Chem 7: 03/30/21 04:21 03/30/21 04:21 Labs: Laboratory Last Values WBC 16.5 K/mm3 (4.5-11.0) H 03/30/21 04:21 RBC 4.35 M/mm3 (3.65-5.03) 03/30/21 04:21 Hgb 13.4 gm/dl (11.8-15.2) 03/30/21 04:21 Hct 40.1 % (35.5-45.6) 03/30/21 04:21 MCV 92 fl (84-94) 03/30/21 04:21 MCH 31 pg (28-32) 03/30/21 04:21 MCHC 34 % (32-34) 03/30/21 04:21 RDW 13.7 % (13.2-15.2) 03/30/21 04:21 Plt Count 156 K/mm3 (140-440) 03/30/21 04:21 Lymph % (Auto) 10.2 % (13.4-35.0) L 03/30/21 04:21 [place] % (Auto) 12.5 % (0.0-7.3) H 03/30/21 04:21 Eos % (Auto) 0.0 % (0.0-4.3) 03/30/21 04:21 Baso % (Auto) 0.1 % (0.0-1.8) 03/30/21 04:21 Lymph # (Auto) 1.7 K/mm3 (1.2-5.4) 03/30/21 04:21 [place] # (Auto) 2.1 K/mm3 (0.0-0.8) H 03/30/21 04:21 Eos # (Auto) 0.0 K/mm3 (0.0-0.4) 03/30/21 04:21 Baso # (Auto) 0.0 K/mm3 (0.0-0.1) 03/30/21 04:21 Seg Neutrophils % 77.2 % (40.0-70.0) H 03/30/21 04:21 Seg Neutrophils # 12.7 K/mm3 (1.8-7.7) H 03/30/21 04:21 Sodium 139 mmol/L (137-145) 03/30/21 04:21 Potassium 3.8 mmol/L (3.6-5.0) 03/30/21 04:21 Chloride 104.3 mmol/L (98-107) 03/30/21 04:21 Carbon Dioxide 24 mmol/L (22-30) 03/30/21 04:21 Anion Gap 15 mmol/L 03/30/21 04:21 BUN 16 mg/dL (9-20) 03/30/21 04:21 Creatinine 1.0 mg/dL (0.8-1.3) 03/30/21 04:21 Estimated GFR > 60 ml/min 03/30/21 04:21 BUN/Creatinine Ratio 16 % 03/30/21 04:21 Glucose 139 mg/dL (75-100) H 03/30/21 04:21 Calcium 8.4 mg/dL (8.4-10.2) 03/30/21 04:21 Magnesium 1.80 mg/dL (1.7-2.3) 03/30/21 04:21 Total Bilirubin 0.50 mg/dL (0.1-1.2) 03/29/21 02:17 Direct Bilirubin < 0.2 mg/dL (0-0.2) 03/29/21 02:17 Indirect Bilirubin 0.3 mg/dL 03/29/21 02:17 AST 21 units/L (5-40) 03/29/21 02:17 ALT 19 units/L (7-56) 03/29/21 02:17 Alkaline Phosphatase 74 units/L (35-129) 03/29/21 02:17 Total Protein 7.2 g/dL (6.3-8.2) 03/29/21 02:17 Albumin 4.4 g/dL (3.9-5) 03/29/21 02:17 Albumin/Globulin Ratio 1.6 % 03/29/21 02:17 Lipase 13 units/L (13-60) 03/29/21 02:17 Active Medications - Current Medications Current Medications: Generic Name Dose Route Start Last Admin Trade Name Freq PRN Reason Stop Dose Admin Acetaminophen 650 mg 03/29/21 04:44 Acetaminophen 325 Mg Tab PO Q4H PRN Pain MILD(1-3)/Fever >100.5/AVILA Albuterol 2.5 mg 03/29/21 04:44 Albuterol 2.5 Mg/3 Ml Nebu IH Q4HRT PRN Shortness Of Breath Albuterol/Ipratropium 1 ampul 03/29/21 08:00 03/30/21 04:06 Ipratropium/Albuterol Sulfate 3 Ml Ampul.Neb IH Not Given Q6HRT BRIAN Famotidine 20 mg 03/29/21 10:00 03/29/21 23:00 Famotidine 20 Mg/2 Ml Inj IV 20 mg BID BRIAN Administration Hydromorphone HCl 0.5 mg 03/29/21 04:44 Hydromorphone 1 Mg/1 Ml Inj IV Q3H PRN Pain , Severe (7-10) Sodium Chloride 1,000 mls @ 100 mls/hr 03/29/21 05:00 Nacl 0.45% 1000 Ml IV DIRECT BRIAN Esmolol HCl 2.5 gm in 250 mls @ 33 mls/hr 03/30/21 07:00 03/30/21 07:54 Brevibloc Drip 2.5gm/ Ns 250ml IV 50 mcg/kg/min TITR BRIAN 33 mls/hr Administration Protocol 50 MCG/KG/MIN Nifedipine 30 mg 03/30/21 10:00 Nifedipine Xl 30 Mg Tab PO QDAY BRIAN Ondansetron HCl 4 mg 03/29/21 04:44 Ondansetron 4 Mg/2 Ml Inj IV Q8H PRN Nausea And Vomiting Oxycodone/Acetaminophen 1 tab 03/29/21 04:44 Oxycodone /Acetaminophen 5-325mg Tab PO Q6H PRN Pain, Moderate (4-6) Sodium Chloride 10 ml 03/29/21 10:00 03/29/21 21:00 Sodium Chloride 0.9% 10 Ml Flush Syringe IV 10 ml BID BRIAN Administration Sodium Chloride 10 ml 03/29/21 04:44 Sodium Chloride 0.9% 10 Ml Flush Syringe IV PRN PRN LINE FLUSH Zolpidem Tartrate 5 mg 03/29/21 18:31 Zolpidem 5 Mg Tab PO QHS PRN Sleep
[2021-03-30 08:55] LABS: Bilirubin,Urine NEG (Negative); Blood,Urine NEG (Negative); Color,Urine Amber (Yellow); Mucus,Urine FEW /HPF
[2021-03-30] MEDS: FAMOTIDINE 20 MG/2 ML INJ IV SCH ×2 (10:50→22:33)
[2021-03-30] MEDS: ALPRAZolam 1 MG TAB PO SCH ×2 (10:50→22:32)
[2021-03-30] MEDS: NIFEdipine XL 30 MG TAB PO SCH (10:51)
--- NOTE | 2021-03-30 10:58 | XRay Report ---
CHEST 1 VIEW 03/30/2021 8:42 AM INDICATION / CLINICAL INFORMATION: Leukocytosis. Aortic dissection. COMPARISON: CT chest dated 03/29/21 FINDINGS: SUPPORT DEVICES: None. HEART / MEDIASTINUM: Heart size is normal. Thoracic aortic arch and descending thoracic aorta appear ectatic possibly related to aortic dissection. LUNGS / PLEURA: Bibasilar atelectasis. No pneumothorax. ADDITIONAL FINDINGS: No significant additional findings. IMPRESSION: 1. Bibasilar atelectasis. 2. 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 Signer Name: Sandra Schroeder MD Signed: 03/30/2021 10:54 AM Workstation Name: [id number]
--- NOTE | 2021-03-30 12:21 | Progress Note ---
Assessment and Plan Patient is on an esmolol drip with Nifedipine XL. His HR has been in the 60's however his Systolic BP has remained in the 140's-150's with a Diastolic BP in the 80's. The patient needs aggressive BP control as BP control within the first 24 hours of the dissection is related to 1 and 5 year mortality rates. The patient needs a SBP ideally < 120 and a Diastolic BP < 80. He does not have any signs of end organ ischemia or propagation of the dissection at this time. Would recommend adding either oral Labetelol 100 mg p.o. BID or Nipride drip for aggressive BP control. Subjective Date of service: 03/30/21 Principal diagnosis: Aortic Dissection Interval history: The patient has no complaints at this time. He denies having any pain at this time. Objective - Constitutional Vitals: Vital Signs - 12hr 03/30/21 03/30/21 03/30/21 00:20 00:31 00:41 Temperature Pulse Rate 63 64 64 Respiratory 16 16 16 Rate Blood Pressure 136/71 136/71 136/71 O2 Sat by Pulse 97 97 95 Oximetry 03/30/21 03/30/21 03/30/21 00:50 01:01 01:11 Temperature Pulse Rate 64 64 64 Respiratory 16 18 16 Rate Blood Pressure 147/84 147/84 147/84 O2 Sat by Pulse 97 94 95 Oximetry 03/30/21 03/30/21 03/30/21 01:20 01:24 01:31 Temperature Pulse Rate 68 66 Respiratory 17 16 Rate Blood Pressure 140/81 140/81 O2 Sat by Pulse 96 100 95 Oximetry 03/30/21 03/30/21 03/30/21 01:41 01:50 02:01 Temperature Pulse Rate 70 74 76 Respiratory 16 18 20 Rate Blood Pressure 140/81 156/83 140/81 O2 Sat by Pulse 96 95 93 Oximetry 03/30/21 03/30/21 03/30/21 02:11 02:20 02:31 Temperature Pulse Rate 73 75 78 Respiratory 19 19 19 Rate Blood Pressure 140/81 160/83 156/83 O2 Sat by Pulse 94 94 94 Oximetry 03/30/21 03/30/21 03/30/21 02:41 02:50 03:01 Temperature Pulse Rate 85 76 91 H Respiratory 19 17 23 Rate Blood Pressure 156/83 163/83 163/83 O2 Sat by Pulse 93 93 91 Oximetry 03/30/21 03/30/21 03/30/21 03:11 03:31 04:01 Temperature Pulse Rate 64 63 77 Respiratory 16 15 20 Rate Blood Pressure 163/83 157/86 157/86 O2 Sat by Pulse 93 96 94 Oximetry 03/30/21 03/30/21 03/30/21 04:31 05:01 05:31 Temperature Pulse Rate 64 64 64 Respiratory 17 15 17 Rate Blood Pressure 146/84 163/86 136/82 O2 Sat by Pulse 95 93 94 Oximetry 03/30/21 03/30/21 03/30/21 06:01 06:31 07:08 Temperature 98.8 F Pulse Rate 63 72 Respiratory 16 17 Rate Blood Pressure 125/75 154/88 O2 Sat by Pulse 95 93 Oximetry 03/30/21 03/30/21 03/30/21 08:41 08:50 09:20 Temperature Pulse Rate 63 62 65 Respiratory 15 15 18 Rate Blood Pressure 154/82 162/92 142/85 O2 Sat by Pulse 95 95 92 Oximetry 03/30/21 09:26 Temperature Pulse Rate Respiratory Rate Blood Pressure O2 Sat by Pulse 95 Oximetry General appearance: Present: no acute distress - Respiratory Respiratory effort: normal Extremities: no ischemia, pulses intact (palpable radial pulses and pedal pulses bilaterally) - Gastrointestinal General gastrointestinal: Present: soft, non-tender, non-distended - Labs CBC & Chem 7: 03/30/21 04:21 03/30/21 04:21 Labs: Abnormal lab results 03/29/21 03/30/21 03/30/21 Range/Units 09:17 04:21 04:21 WBC 16.5 H (4.5-11.0) K/mm3 Lymph % (Auto) 10.2 L (13.4-35.0) % [place] % (Auto) 12.5 H (0.0-7.3) % [place] # (Auto) 2.1 H (0.0-0.8) K/mm3 Seg Neutrophils % 77.2 H (40.0-70.0) % Seg Neutrophils # 12.7 H (1.8-7.7) K/mm3 Glucose 139 H (75-100) mg/dL Ur Specific [place] 1.040 H (1.003-1.030) Medications & Allergies - Medications Allergies/Adverse Reactions: Allergies No Known Allergies Allergy (Verified 03/29/21 02:38) Home Medications: Home Medications Medication Instructions Recorded Confirmed Last Taken Type Amiodarone [Cordarone 200 MG TAB] 100 mg PO DAILY 03/29/21 03/29/21 03/28/21 History Active Medications: Generic Name Dose Route Start Last Admin Trade Name Freq PRN Reason Stop Dose Admin Acetaminophen 650 mg 03/29/21 04:44 Acetaminophen 325 Mg Tab PO Q4H PRN Pain MILD(1-3)/Fever >100.5/AVILA Albuterol 2.5 mg 03/29/21 04:44 Albuterol 2.5 Mg/3 Ml Nebu IH Q4HRT PRN Shortness Of Breath Albuterol/Ipratropium 1 ampul 03/29/21 08:00 03/30/21 04:06 Ipratropium/Albuterol Sulfate 3 Ml Ampul.Neb IH Not Given Q6HRT BRAIN Alprazolam 1 mg 03/30/21 10:38 03/30/21 10:50 Alprazolam 1 Mg Tab PO 1 mg BID BRIAN Administration Famotidine 20 mg 03/29/21 10:00 03/30/21 10:50 Famotidine 20 Mg/2 Ml Inj IV 20 mg BID BRIAN Administration Hydromorphone HCl 0.5 mg 03/29/21 04:44 Hydromorphone 1 Mg/1 Ml Inj IV Q3H PRN Pain , Severe (7-10) Esmolol HCl 2.5 gm in 250 mls @ 33 mls/hr 03/30/21 07:00 03/30/21 11:21 Brevibloc Drip 2.5gm/ Ns 250ml IV 300 mcg/kg/min TITR BRIAN 198 mls/hr Administration Protocol 50 MCG/KG/MIN Nifedipine 30 mg 03/30/21 10:00 03/30/21 10:51 Nifedipine Xl 30 Mg Tab PO 30 mg QDAY BRIAN Administration Ondansetron HCl 4 mg 03/29/21 04:44 Ondansetron 4 Mg/2 Ml Inj IV Q8H PRN Nausea And Vomiting Oxycodone/Acetaminophen 1 tab 03/29/21 04:44 Oxycodone /Acetaminophen 5-325mg Tab PO Q6H PRN Pain, Moderate (4-6) Sodium Chloride 10 ml 03/29/21 10:00 03/30/21 10:51 Sodium Chloride 0.9% 10 Ml Flush Syringe IV 10 ml BID BRIAN Administration Sodium Chloride 10 ml 03/29/21 04:44 Sodium Chloride 0.9% 10 Ml Flush Syringe IV PRN PRN LINE FLUSH Zolpidem Tartrate 5 mg 03/29/21 18:31 Zolpidem 5 Mg Tab PO QHS PRN Sleep
--- NOTE | 2021-03-30 12:35 | Consultation ---
History of Present Illness Consult date: 03/30/21 Consult reason: other (Descending aortic dissection) History of present illness: 66-year-old male with past medical history of paroxysmal atrial fibrillation on amiodarone and hypertension presented with back pain and was found to have descending aortic dissection. Cardiology consulted for further recommendations. Patient reports that [place] the airport and [place] flight. He subsequently developed chest and back discomfort and thus presented to the ED. Work-up included CT of abdomen and pelvis which demonstrated descending aortic dissection extending from left subclavian artery to the level of infrarenal abdominal aorta. No compromise of the visceral vessels has been noted. CTA chest did not show any ascending aortic dissection. He has since been evaluated by vascular surgery as well and medical management has been recommended. He is currently on esmolol infusion and nifedipine for blood pressure and heart rate control. At present, he is asymptomatic and denies chest pain, back pain, extremity weakness/numbness, bowel/bladder incontinence, or shortness of breath. Of note, he reports that he was started on amiodarone approximately 1 year ago for rapid heart rate. He has not been on any blood th inner. Past History Past Medical History: atrial fib, hypertension Past Surgical History: No surgical history Social history: . denies: smoking Family history: no significant family history Medications and Allergies Allergies Allergy/AdvReac Type Severity Reaction Status Date / Time No Known Allergies Allergy Verified 03/29/21 02:38 Home Medications Medication Instructions Recorded Confirmed Last Taken Type Amiodarone [Cordarone 200 MG TAB] 100 mg PO DAILY 03/29/21 03/29/21 03/28/21 History Active Meds: Active Medications Acetaminophen (Acetaminophen 325 Mg Tab) 650 mg PO Q4H PRN PRN Reason: Pain MILD(1-3)/Fever >100.5/AVILA Albuterol (Albuterol 2.5 Mg/3 Ml Nebu) 2.5 mg IH Q4HRT PRN PRN Reason: Shortness Of Breath Albuterol/Ipratropium (Ipratropium/Albuterol Sulfate 3 Ml Ampul.Neb) 1 ampul IH Q6HRT [facility] Last Admin: 03/30/21 04:06 Dose: Not Given Documented by: Alprazolam (Alprazolam 1 Mg Tab) 1 mg PO BID [facility] Last Admin: 03/30/21 10:50 Dose: 1 mg Documented by: Famotidine (Famotidine 20 Mg/2 Ml Inj) 20 mg IV BID [facility] Last Admin: 03/30/21 10:50 Dose: 20 mg Documented by: Hydromorphone HCl (Hydromorphone 1 Mg/1 Ml Inj) 0.5 mg IV Q3H PRN PRN Reason: Pain , Severe (7-10) Esmolol HCl (Brevibloc Drip 2.5gm/ Ns 250ml) 2.5 gm in 250 mls @ 33 mls/hr IV TITR [facility]; Protocol Last Admin: 03/30/21 11:21 Dose: 300 mcg/kg/min, 198 mls/hr Documented by: Nifedipine (Nifedipine Xl 30 Mg Tab) 30 mg PO QDAY [facility] Last Admin: 03/30/21 10:51 Dose: 30 mg Documented by: Ondansetron HCl (Ondansetron 4 Mg/2 Ml Inj) 4 mg IV Q8H PRN PRN Reason: Nausea And Vomiting Oxycodone/Acetaminophen (Oxycodone /Acetaminophen 5-325mg Tab) 1 tab PO Q6H PRN PRN Reason: Pain, Moderate (4-6) Sodium Chloride (Sodium Chloride 0.9% 10 Ml Flush Syringe) 10 ml IV BID [facility] Last Admin: 03/30/21 10:51 Dose: 10 ml Documented by: Sodium Chloride (Sodium Chloride 0.9% 10 Ml Flush Syringe) 10 ml IV PRN PRN PRN Reason: LINE FLUSH Zolpidem Tartrate (Zolpidem 5 Mg Tab) 5 mg PO QHS PRN PRN Reason: Sleep Review of Systems All systems: negative Physical Examination Vital Signs Pulse Resp Pulse Ox 83 17 97 03/29/21 02:20 03/29/21 02:20 03/29/21 02:20 Narrative exam: Gen-NAD, comfortable Neck-supple, no JVD CV-RRR, no murmurs Lungs-CTAB, on room air Abd-soft/nt/nd Ext-warm to touch, no edema Neuro-alert and oriented, no gross focal deficits Psych-affect normal Results 03/30/21 04:21 03/30/21 04:21 CBC 03/30/21 Range/Units 04:21 WBC 16.5 H (4.5-11.0) K/mm3 RBC 4.35 (3.65-5.03) M/mm3 Hgb 13.4 (11.8-15.2) gm/dl Hct 40.1 (35.5-45.6) % Plt Count 156 (140-440) K/mm3 Lymph # (Auto) 1.7 (1.2-5.4) K/mm3 [place] # (Auto) 2.1 H (0.0-0.8) K/mm3 Eos # (Auto) 0.0 (0.0-0.4) K/mm3 Baso # (Auto) 0.0 (0.0-0.1) K/mm3 Comprehensive Metabolic Panel 03/30/21 Range/Units 04:21 Sodium 139 (137-145) mmol/L Potassium 3.8 (3.6-5.0) mmol/L Chloride 104.3 (98-107) mmol/L Carbon Dioxide 24 (22-30) mmol/L BUN 16 (9-20) mg/dL Creatinine 1.0 (0.8-1.3) mg/dL Glucose 139 H (75-100) mg/dL Calcium 8.4 (8.4-10.2) mg/dL 03/29/2021 EKGatrial flutter with variable response, heart rate 73 Assessment and Plan #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 Titrate IV esmolol as needed for goal heart rate 60 and BP less than 120/80. Continue nifedipine. Once BP is consistently less than 120/80 and heart rate consistently 60 (or less), then recommend starting labetalol 200 mg twice daily and attempting to wean esmolol drip. Appreciate vascular surgery input. With regards to AF/AFL, anticoagulation indicated based on [id number] score; however, will defer at present given aortic dissection.
--- NOTE | 2021-03-30 13:14 | Consultation ---
History of Present Illness - Reason for Consult Consult date: 03/30/21 Hypertensive Emergency Requesting physician: TANIA MAYO - History of Present Illness 66 y/o male visiting from [place] admitted with chest pain. Found to have type b aortic dissection and hypertensive emergency. Past History Past Medical History: atrial fib, hypertension Past Surgical History: No surgical history Social history: . denies: smoking Family history: no significant family history Medications and Allergies Allergies Allergy/AdvReac Type Severity Reaction Status Date / Time No Known Allergies Allergy Verified 03/29/21 02:38 Home Medications Medication Instructions Recorded Confirmed Last Taken Type Amiodarone [Cordarone 200 MG TAB] 100 mg PO DAILY 03/29/21 03/29/21 03/28/21 History Active Meds: Active Medications Acetaminophen (Acetaminophen 325 Mg Tab) 650 mg PO Q4H PRN PRN Reason: Pain MILD(1-3)/Fever >100.5/AVILA Albuterol (Albuterol 2.5 Mg/3 Ml Nebu) 2.5 mg IH Q4HRT PRN PRN Reason: Shortness Of Breath Albuterol/Ipratropium (Ipratropium/Albuterol Sulfate 3 Ml Ampul.Neb) 1 ampul IH Q6HRT [facility] Last Admin: 03/30/21 04:06 Dose: Not Given Documented by: Alprazolam (Alprazolam 1 Mg Tab) 1 mg PO BID [facility] Last Admin: 03/30/21 10:50 Dose: 1 mg Documented by: Famotidine (Famotidine 20 Mg/2 Ml Inj) 20 mg IV BID [facility] Last Admin: 03/30/21 10:50 Dose: 20 mg Documented by: Hydromorphone HCl (Hydromorphone 1 Mg/1 Ml Inj) 0.5 mg IV Q3H PRN PRN Reason: Pain , Severe (7-10) Esmolol HCl (Brevibloc Drip 2.5gm/ Ns 250ml) 2.5 gm in 250 mls @ 33 mls/hr IV TITR [facility]; Protocol Last Admin: 03/30/21 11:21 Dose: 300 mcg/kg/min, 198 mls/hr Documented by: Labetalol HCl (Labetalol 100 Mg Tab) 100 mg PO BID [facility] Nifedipine (Nifedipine Xl 30 Mg Tab) 30 mg PO QDAY [facility] Last Admin: 03/30/21 10:51 Dose: 30 mg Documented by: Ondansetron HCl (Ondansetron 4 Mg/2 Ml Inj) 4 mg IV Q8H PRN PRN Reason: Nausea And Vomiting Oxycodone/Acetaminophen (Oxycodone /Acetaminophen 5-325mg Tab) 1 tab PO Q6H PRN PRN Reason: Pain, Moderate (4-6) Sodium Chloride (Sodium Chloride 0.9% 10 Ml Flush Syringe) 10 ml IV BID BRIAN Last Admin: 03/30/21 10:51 Dose: 10 ml Documented by: Sodium Chloride (Sodium Chloride 0.9% 10 Ml Flush Syringe) 10 ml IV PRN PRN PRN Reason: LINE FLUSH Zolpidem Tartrate (Zolpidem 5 Mg Tab) 5 mg PO QHS PRN PRN Reason: Sleep Exam - Constitutional Vitals: Temp Pulse Resp BP Pulse Ox 98.8 F 65 18 142/85 95 03/30/21 07:08 03/30/21 09:20 03/30/21 09:20 03/30/21 09:20 03/30/21 09:26 Results - Labs CBC & Chem 7: 04/01/21 03:43 03/31/21 04:49 Labs: Abnormal lab results 03/29/21 03/30/21 03/30/21 Range/Units 09:17 04:21 04:21 WBC 16.5 H (4.5-11.0) K/mm3 Lymph % (Auto) 10.2 L (13.4-35.0) % [place] % (Auto) 12.5 H (0.0-7.3) % [place] # (Auto) 2.1 H (0.0-0.8) K/mm3 Seg Neutrophils % 77.2 H (40.0-70.0) % Seg Neutrophils # 12.7 H (1.8-7.7) K/mm3 Glucose 139 H (75-100) mg/dL Ur Specific [place] 1.040 H (1.003-1.030) Assessment and Plan 66 y/o male with aortic dissection type B, secondary to uncontrolled hypertension and tachycardia. 1. Cards consulted and suggested esomolol drip 2. Titrate drip to parameters as listed by cards 3. Would suggest adding oral therapy now and titrating drip down to achieve desired heart rate and bp. If waiting until drip does it by itself, maybe difficult to control without the oral therapy already on board. 4. Once off drip can be downgraded from ICU status.
--- NOTE | 2021-03-30 18:27 | Event Note ---
Date: 03/30/21 I called patient Ms. Gutierrez at [phone] [patient's cousin's phone ]and explained in detail patient's condition, tests and reports, consultants recommendations, current management, and his progress, discharge planning issues, she had numerous questions, answered all of them, and informed her that the patient will be ready for discharge only when he is medically stable. I encouraged her to call back if she has new concerns. I informed the patient's nurse about my conversation with patient's .
[2021-03-31] MEDS: ESMOLOL DRIP 2.5 GM/250 ML BAG IV SCH ×5 (01:23→05:20)
[2021-03-31] MEDS: IPRATROPIUM/ALBUTEROL SULFATE 3 ML AMPUL.NEB IH SCH ×5 (03:29→21:59)
[2021-03-31 05:44] LABS: Basophils % (Auto) 0.1 % (0.0-1.8); Eosinophils % (Auto) 0.2 % (0.0-4.3); Hematocrit 39.3 % (35.5-45.6); Hemoglobin 13.1 gm/dl (11.8-15.2); Lymphocytes # (Auto) 1.4 K/mm3 (1.2-5.4); Lymphocytes % (Auto) 9.6 % (13.4-35.0); Mean Corpuscular HGB Conc 34 % (32-34); Mean Corpuscular Volume 93 fl (84-94); Monocytes % (Auto) 13.7 % (0.0-7.3); Platelet Count 122 K/mm3 (140-440); Red Blood Count 4.23 M/mm3 (3.65-5.03); Red Cell Distribution Width 13.6 % (13.2-15.2)
[2021-03-31 05:46] LABS: BUN/Creatinine Ratio 20; Blood Urea Nitrogen 18 mg/dL (9-20); Hemolysis Index 6
[2021-03-31] MEDS: labetaloL 200 MG in DEXTROSE 5% IN WATER 160 ML IV SCH ×9 (06:40→22:27)
--- NOTE | 2021-03-31 07:44 | Progress Note ---
Assessment and Plan Assessment and plan: Esmolol is not available, patient started on labetalol drip per protocol Today at 7:30 AM patient's blood pressure is 127/64 and heart rate ranging between 63-73 --Covid negative 3-4 days ago[tested for travel purposes] --Type B thoracoabdominal aortic dissection ; Current Visit: Yes Status: Acute Patient was on esmolol drip per protocol, Due to shortage of esmolol, labetalol drip was started this morning Titrate systolic blood pressure less than 120 and HR <65/min Patient's blood pressure this morning at 7:30 is 127/ 64 and heart rate 63- 73/min vascular surgeon and cardiology, pulmonary critical following CTA chest and CTA abdomen; 03/29/2021 Type B thoracoabdominal aortic dissection beginning in the distal aortic arch and extending into the infrarenal abdominal aorta dissection does not involve the ascending thoracic aorta dissection extends into the origins of the left subclavian artery and the superior mesenteric artery no vessel occlusion or significant stenosis left common iliac aneurysmal dilatation, We will transition to oral labetalol when stable BP less than 120 systolic and heart rate less than 60/min are achieved. --Hypertension Current Visit: Yes Status: Acute Esmolol drip shortage , started on labetalol drip this morning --History of atrial fibrillation; Current Visit: Yes Status: Chronic Cardiology had amiodarone --Abdominal pain Current Visit: Yes Status: Acute Due to aortic dissection now resolved --Nausea & vomiting Current Visit: Yes Status: Acute Resolved ,antiemetics as needed --SIRS: Leukocytosis Current Visit: Yes Status: Acute Leukocytosis, tachycardia[on admission] Patient has no fever, UA negative Chest x-ray; bilateral atelectasis/no evidence of pneumonia Check blood and urine cultures ,closely monitor --Obesity; BMI 32.9; Current Visit: Yes Status: Chronic Patient may need weight reduction when he is medically stable --Full code status --DVT prophylaxis Current Visit: Yes Status: Acute SCD Vascular, cardiology, pulmonary evaluation and recommendations noted and appreciated Closely monitor the patient and adjust management as needed Plan of care reviewed with the patient, patient's nurse, patient's over the phone Disposition; transition to oral medications once target heart rate and blood pressures are reached And patient is clinically stable, and discharge when cleared by consultants Brief history and daily hospital course: 66-year-old male patient traveling from [place] here was running to the airport to catch the plane and missed it he was upset which must have elevated the blood pressure developed some abdominal pain and back pain, presented to the emergency room, CT abdomen and pelvis And subsequently CTA chest and CT pelvis revealed type B aortic dissection involving the descending aorta extending to the level of renal arteries. No evidence of vascular compromise, patient was hemodynamically stable, however her uncontrolled blood pressures. Patient was started on esmolol drip to titrate to the target blood pressure of less than 120 and heart rate less than 60. Subsequently evaluated by gas appliance repairer and pulmonary critical, medications o ptimized Currently patient is on labetalol as there is esmolol shortage, maintaining blood pressure and heart rate reasonably well 03/30/2021; Cardiology, pulmonary and vascular following the patient, patient is on esmolol drip titrating heart rate to less than 60 and blood pressure less than 120 systolic Patient is still awaiting ICU bed assignment, currently in the emergency room I called patient Ms. Gutierrez at [phone] [patient's cousin's phone ]and explained in detail patient's condition, tests and reports, consultants recommendations, current management, and his progress, discharge planning issues, she had numerous questions, answered all of them, and informed her that the patient will be ready for discharge only when he is medically stable. I encouraged her to call back if she has new concerns. I informed the patient's nurse about my conversation with patient's . 03/31/2021; Esmolol shortage, this morning patient started on labetalol drip per protocol, titrate blood pressure less than 120 systolic and heart rate less than 60/min Low-dose Xanax for anxiety I called patient Ms. Gutierrez at [phone] [patient's cousin's phone ] and discuss again this morning in detail, patient's condition treatment plan Patient's continued progress, his blood pressures and heart rate. She is concerned about the travel plans, she had numerous questions Answered all of them. Also informed that patient is not stable for discharge and travel at this point. History Interval history: I have seen and examined the patient at the bedside patient's chart and medications reviewed Patient sleeping easily awakens feels slightly better Receiving labetalol drip with close monitoring of blood pressures and heart rate Not in acute distress Hospitalist Physical - Constitutional Vitals: Temp Pulse Resp BP Pulse Ox 98 F 73 21 127/64 90 03/30/21 19:30 03/31/21 07:30 03/31/21 07:30 03/31/21 07:30 03/31/21 07:30 General appearance: Present: no acute distress, well-nourished, other (Labetalol drip) - EENT Eyes: Present: PERRL, EOM intact - Neck Neck: Present: supple, normal ROM - Respiratory Respiratory effort: normal Respiratory: bilateral: diminished, negative: rales, rhonchi, wheezing - Cardiovascular Rhythm: regular Heart Sounds: Present: S1 & S2 - Extremities Extremities: no ischemia, No edema - Abdominal General gastrointestinal: soft, non-tender, non-distended, normal bowel sounds - Integumentary Integumentary: Present: clear, warm - Psychiatric Psychiatric: appropriate mood/affect, cooperative - Neurologic Neurologic: CNII-XII intact, moves all extremities Results - Labs CBC & Chem 7: 03/31/21 04:49 03/31/21 04:49 Labs: Laboratory Last Values WBC 14.7 K/mm3 (4.5-11.0) H 03/31/21 04:49 RBC 4.23 M/mm3 (3.65-5.03) 03/31/21 04:49 Hgb 13.1 gm/dl (11.8-15.2) 03/31/21 04:49 Hct 39.3 % (35.5-45.6) 03/31/21 04:49 MCV 93 fl (84-94) 03/31/21 04:49 MCH 31 pg (28-32) 03/31/21 04:49 MCHC 34 % (32-34) 03/31/21 04:49 RDW 13.6 % (13.2-15.2) 03/31/21 04:49 Plt Count 122 K/mm3 (140-440) L 03/31/21 04:49 Lymph % (Auto) 9.6 % (13.4-35.0) L 03/31/21 04:49 [place] % (Auto) 13.7 % (0.0-7.3) H 03/31/21 04:49 Eos % (Auto) 0.2 % (0.0-4.3) 03/31/21 04:49 Baso % (Auto) 0.1 % (0.0-1.8) 03/31/21 04:49 Lymph # (Auto) 1.4 K/mm3 (1.2-5.4) 03/31/21 04:49 [place] # (Auto) 2.0 K/mm3 (0.0-0.8) H 03/31/21 04:49 Eos # (Auto) 0.0 K/mm3 (0.0-0.4) 03/31/21 04:49 Baso # (Auto) 0.0 K/mm3 (0.0-0.1) 03/31/21 04:49 Seg Neutrophils % 76.4 % (40.0-70.0) H 03/31/21 04:49 Seg Neutrophils # 11.2 K/mm3 (1.8-7.7) H 03/31/21 04:49 Sodium 138 mmol/L (137-145) 03/31/21 04:49 Potassium 3.8 mmol/L (3.6-5.0) 03/31/21 04:49 Chloride 104.2 mmol/L (98-107) 03/31/21 04:49 Carbon Dioxide 24 mmol/L (22-30) 03/31/21 04:49 Anion Gap 14 mmol/L 03/31/21 04:49 BUN 18 mg/dL (9-20) 03/31/21 04:49 Creatinine 0.9 mg/dL (0.8-1.3) 03/31/21 04:49 Estimated GFR > 60 ml/min 03/31/21 04:49 BUN/Creatinine Ratio 20 % 03/31/21 04:49 Glucose 123 mg/dL (75-100) H 03/31/21 04:49 Calcium 8.0 mg/dL (8.4-10.2) L 03/31/21 04:49 Magnesium 1.90 mg/dL (1.7-2.3) 03/31/21 04:49 Total Bilirubin 0.50 mg/dL (0.1-1.2) 03/29/21 02:17 Direct Bilirubin < 0.2 mg/dL (0-0.2) 03/29/21 02:17 Indirect Bilirubin 0.3 mg/dL 03/29/21 02:17 AST 21 units/L (5-40) 03/29/21 02:17 ALT 19 units/L (7-56) 03/29/21 02:17 Alkaline Phosphatase 74 units/L (35-129) 03/29/21 02:17 Total Protein 7.2 g/dL (6.3-8.2) 03/29/21 02:17 Albumin 4.4 g/dL (3.9-5) 03/29/21 02:17 Albumin/Globulin Ratio 1.6 % 03/29/21 02:17 Lipase 13 units/L (13-60) 03/29/21 02:17 Urine Color [place] (Yellow) 03/29/21 09:17 Urine Turbidity Clear (Clear) 03/29/21 09:17 Urine pH 6.0 (5.0-7.0) 03/29/21 09:17 Ur Specific [place] 1.040 (1.003-1.030) H 03/29/21 09:17 Urine Protein 100 mg/dl mg/dL (Negative) 03/29/21 09:17 Urine Glucose (UA) Neg mg/dL (Negative) 03/29/21 09:17 Urine Ketones Neg mg/dL (Negative) 03/29/21 09:17 Urine Blood Neg (Negative) 03/29/21 09:17 Urine Nitrite Neg (Negative) 03/29/21 09:17 Urine Bilirubin Neg (Negative) 03/29/21 09:17 Urine Urobilinogen 2.0 mg/dL (<2.0) 03/29/21 09:17 Ur Leukocyte Esterase Neg (Negative) 03/29/21 09:17 Urine WBC (Auto) 3.0 /HPF (0.0-6.0) 03/29/21 09:17 Urine RBC (Auto) 6.0 /HPF (0.0-6.0) 03/29/21 09:17 U Epithel Cells (Auto) < 1.0 /HPF (0-13.0) 03/29/21 09:17 Urine Mucus Few /HPF 03/29/21 09:17 Palafox/IV: Voiding Method Urinal Active Medications - Current Medications Current Medications: Generic Name Dose Route Start Last Admin Trade Name Freq PRN Reason Stop Dose Admin Acetaminophen 650 mg 03/29/21 04:44 Acetaminophen 325 Mg Tab PO Q4H PRN Pain MILD(1-3)/Fever >100.5/AVILA Albuterol 2.5 mg 03/29/21 04:44 Albuterol 2.5 Mg/3 Ml Nebu IH Q4HRT PRN Shortness Of Breath Albuterol/Ipratropium 1 ampul 03/29/21 08:00 03/31/21 03:29 Ipratropium/Albuterol Sulfate 3 Ml Ampul.Neb IH Not Given Q6HRT BRIAN Alprazolam 1 mg 03/30/21 10:38 03/30/21 22:32 Alprazolam 1 Mg Tab PO 1 mg BID BRIAN Administration Famotidine 20 mg 03/29/21 10:00 03/30/21 22:33 Famotidine 20 Mg/2 Ml Inj IV 20 mg BID BRIAN Administration Hydromorphone HCl 0.5 mg 03/29/21 04:44 Hydromorphone 1 Mg/1 Ml Inj IV Q3H PRN Pain , Severe (7-10) Esmolol HCl 2.5 gm in 250 mls @ 33 mls/hr 03/30/21 07:00 03/31/21 06:38 Brevibloc Drip 2.5gm/ Ns 250ml IV Infused TITR BRIAN Titration Protocol 50 MCG/KG/MIN Labetalol HCl 200 mg/ Dextrose 200 mls @ 120 mls/hr 03/31/21 06:00 03/31/21 07:10 IV 4 mg/min TITR BRIAN 240 mls/hr Titration Protocol 2 MG/MIN Labetalol HCl 100 mg 03/30/21 13:00 03/30/21 22:32 Labetalol 100 Mg Tab PO 100 mg BID BRIAN Administration Nifedipine 30 mg 03/30/21 10:00 03/30/21 10:51 Nifedipine Xl 30 Mg Tab PO 30 mg QDAY BRIAN Administration Ondansetron HCl 4 mg 03/29/21 04:44 Ondansetron 4 Mg/2 Ml Inj IV Q8H PRN Nausea And Vomiting Oxycodone/Acetaminophen 1 tab 03/29/21 04:44 Oxycodone /Acetaminophen 5-325mg Tab PO Q6H PRN Pain, Moderate (4-6) Sodium Chloride 10 ml 03/29/21 10:00 03/30/21 22:33 Sodium Chloride 0.9% 10 Ml Flush Syringe IV 10 ml BID BRIAN Administration Sodium Chloride 10 ml 03/29/21 04:44 Sodium Chloride 0.9% 10 Ml Flush Syringe IV PRN PRN LINE FLUSH Zolpidem Tartrate 5 mg 03/29/21 18:31 Zolpidem 5 Mg Tab PO QHS PRN Sleep
[2021-03-31] MEDS: FAMOTIDINE 20 MG/2 ML INJ IV SCH ×2 (10:07→23:23)
[2021-03-31] MEDS: NIFEdipine XL 30 MG TAB PO SCH (10:11)
[2021-03-31] MEDS: ALPRAZolam 1 MG TAB PO SCH ×2 (11:39→23:23)
[2021-03-31] MEDS ORDERED: ALPRAZolam 1 MG TAB PO NR (12:00)
--- NOTE | 2021-03-31 14:16 | Progress Note ---
Assessment and Plan - Patient Problems (1) Aortic dissection Current Visit: Yes Status: Acute Qualifiers: Aortic location: thoracoabdominal aorta Qualified Code(s): I71.03 - Dissection of thoracoabdominal aorta Plan to address problem: Patient was admitted with a thoracic descending aortic dissection, on conservative management and being followed up with vascular surgery. Cardiac issues include an atrial flutter fibrillation which appears chronic, on rate control strategy. Patient is not a candidate at this time for anticoagulation. (2) Atrial fibrillation and flutter Current Visit: Yes Status: Acute Plan to address problem: Rate control strategy, not a candidate for anticoagulation due to acute dissection of the thoracic descending aorta. Subjective Date of service: 03/31/21 Principal diagnosis: Aortic Dissection Interval history: No new cardiac complaints, patient was admitted with a thoracic descending aortic dissection, on conservative management and being followed up with vascular surgery. Cardiac issues include an atrial flutter fibrillation which appears chronic, on rate control strategy. Patient is not a candidate at this time for anticoagulation. Objective Vital Signs Temp Pulse Pulse Resp Resp BP BP 03/31/21 12:00 03/31/21 10:12 69 03/31/21 10:00 62 19 132/74 03/31/21 09:50 69 17 132/74 03/31/21 09:40 69 25 H 148/74 03/31/21 09:30 67 19 154/78 03/31/21 09:20 60 14 154/78 03/31/21 09:10 59 L 22 142/73 03/31/21 09:01 03/31/21 09:00 65 16 140/72 03/31/21 08:55 68 20 03/31/21 08:50 59 L 20 140/72 03/31/21 08:40 61 15 135/71 03/31/21 08:30 69 20 142/73 03/31/21 08:20 64 17 142/73 03/31/21 08:10 61 12 129/66 03/31/21 08:00 63 13 132/66 03/31/21 07:50 63 13 132/66 03/31/21 07:40 63 13 124/64 03/31/21 07:30 73 21 127/64 03/31/21 07:00 63 18 137/69 03/31/21 06:40 72 115/67 03/31/21 06:30 63 14 115/67 03/31/21 06:00 65 17 129/78 03/31/21 05:30 63 13 128/72 03/31/21 05:00 63 14 120/69 03/31/21 04:30 73 22 124/75 03/31/21 04:00 64 14 125/73 03/31/21 03:31 75 19 123/70 03/31/21 03:01 63 15 121/71 03/31/21 02:31 69 21 125/71 03/31/21 02:01 65 15 125/73 03/31/21 01:31 67 19 129/74 03/31/21 01:05 97/49 03/31/21 01:01 68 17 03/31/21 00:31 66 16 131/71 03/31/21 00:05 67 15 134/74 03/31/21 00:01 69 14 134/74 03/30/21 23:31 67 15 109/60 03/30/21 23:01 70 17 126/68 03/30/21 22:32 76 133/70 03/30/21 22:31 78 18 120/66 03/30/21 22:01 75 28 H 120/66 03/30/21 21:31 79 14 115/69 03/30/21 21:20 115/69 03/30/21 21:01 68 18 03/30/21 20:44 68 19 03/30/21 20:43 03/30/21 20:31 73 17 03/30/21 20:30 74 15 131/70 03/30/21 20:01 68 17 100/51 03/30/21 19:31 67 15 119/72 03/30/21 19:30 98 F 67 16 119/72 03/30/21 19:01 67 16 118/74 03/30/21 18:31 67 18 118/74 03/30/21 18:25 03/30/21 18:01 65 20 130/74 03/30/21 17:31 77 16 112/76 03/30/21 17:30 77 18 112/76 03/30/21 17:01 64 15 114/70 03/30/21 16:53 18 03/30/21 16:31 63 14 126/71 03/30/21 16:01 72 21 128/70 03/30/21 15:31 71 21 133/73 03/30/21 15:10 70 18 03/30/21 14:38 71 21 117/55 03/30/21 14:31 71 21 117/55 Pulse Ox 03/31/21 12:00 95 03/31/21 10:12 03/31/21 10:00 03/31/21 09:50 92 03/31/21 09:40 93 03/31/21 09:30 94 03/31/21 09:20 93 03/31/21 09:10 95 03/31/21 09:01 95 03/31/21 09:00 95 03/31/21 08:55 03/31/21 08:50 94 03/31/21 08:40 94 03/31/21 08:30 93 03/31/21 08:20 92 03/31/21 08:10 95 03/31/21 08:00 95 03/31/21 07:50 93 03/31/21 07:40 93 03/31/21 07:30 90 03/31/21 07:00 94 03/31/21 06:40 03/31/21 06:30 97 03/31/21 06:00 87 03/31/21 05:30 95 03/31/21 05:00 95 03/31/21 04:30 89 03/31/21 04:00 95 03/31/21 03:31 93 03/31/21 03:01 95 03/31/21 02:31 95 03/31/21 02:01 93 03/31/21 01:31 94 03/31/21 01:05 03/31/21 01:01 94 03/31/21 00:31 03/31/21 00:05 93 03/31/21 00:01 94 03/30/21 23:31 96 03/30/21 23:01 95 03/30/21 22:32 03/30/21 22:31 90 03/30/21 22:01 94 03/30/21 21:31 92 03/30/21 21:20 03/30/21 21:01 94 03/30/21 20:44 03/30/21 20:43 94 03/30/21 20:31 93 03/30/21 20:30 93 09/26/21 20:01 81 L 03/30/21 19:31 92 03/30/21 19:30 93 03/30/21 19:01 93 03/30/21 18:31 93 03/30/21 18:25 93 03/30/21 18:01 92 03/30/21 17:31 88 03/30/21 17:30 92 03/30/21 17:01 88 03/30/21 16:53 95 03/30/21 16:31 88 03/30/21 16:01 89 03/30/21 15:31 87 03/30/21 15:10 03/30/21 14:38 91 03/30/21 14:31 85 - Physical Examination General: No Apparent Distress HEENT: Positive: PERRL Neck: Positive: neck supple Cardiac: Positive: irregularly irregular Lungs: Positive: Decreased Breath Sounds Neuro: Positive: Grossly Intact Abdomen: Positive: Soft Skin: Positive: Clear Extremities: Absent: edema - Labs and Meds CBC 03/31/21 Range/Units 04:49 WBC 14.7 H (4.5-11.0) K/mm3 RBC 4.23 (3.65-5.03) M/mm3 Hgb 13.1 (11.8-15.2) gm/dl Hct 39.3 (35.5-45.6) % Plt Count 122 L (140-440) K/mm3 Lymph # (Auto) 1.4 (1.2-5.4) K/mm3 [place] # (Auto) 2.0 H (0.0-0.8) K/mm3 Eos # (Auto) 0.0 (0.0-0.4) K/mm3 Baso # (Auto) 0.0 (0.0-0.1) K/mm3 Comprehensive Metabolic Panel 03/31/21 Range/Units 04:49 Sodium 138 (137-145) mmol/L Potassium 3.8 (3.6-5.0) mmol/L Chloride 104.2 (98-107) mmol/L Carbon Dioxide 24 (22-30) mmol/L BUN 18 (9-20) mg/dL Creatinine 0.9 (0.8-1.3) mg/dL Glucose 123 H (75-100) mg/dL Calcium 8.0 L (8.4-10.2) mg/dL
--- NOTE | 2021-03-31 14:20 | Progress Note ---
Assessment and Plan 66-year-old male with type B aortic dissection on medical management. Systolic blood pressure less than 120, and optimally, heart rate less than 60. Recommend labetalol if possible. Calcium channel blockers are contraindicated. Patient does not meet criteria for acute TEVAR intervention. His symptoms are well controlled. After 2 weeks, he can follow-up with tertiary care center who may consider him for TEVAR. Subjective Date of service: 03/31/21 Principal diagnosis: Aortic Dissection Interval history: No chest pain. No abdominal pain. No back pain. No postprandial discomfort. No flank discomfort. No shortness of breath. Overall doing well. Reviewed vitals. Discussed with nurse to increase labetalol drip to keep blood pressure less than 120, and optimally, heart rate less than 60. Objective - Constitutional Vitals: Vital Signs - 12hr 03/31/21 03/31/21 03/31/21 02:31 03:01 03:31 Pulse Rate 69 63 75 Pulse Rate [ Bilateral] Respiratory 21 15 19 Rate Respiratory Rate [Bilateral ] Blood Pressure 125/71 121/71 123/70 O2 Sat by Pulse 95 95 93 Oximetry 03/31/21 03/31/21 03/31/21 04:00 04:30 05:00 Pulse Rate 64 73 63 Pulse Rate [ Bilateral] Respiratory 14 22 14 Rate Respiratory Rate [Bilateral ] Blood Pressure 125/73 124/75 120/69 O2 Sat by Pulse 95 89 95 Oximetry 03/31/21 03/31/21 03/31/21 05:30 06:00 06:30 Pulse Rate 63 65 63 Pulse Rate [ Bilateral] Respiratory 13 17 14 Rate Respiratory Rate [Bilateral ] Blood Pressure 128/72 129/78 115/67 O2 Sat by Pulse 95 87 97 Oximetry 03/31/21 03/31/21 03/31/21 06:40 07:00 07:30 Pulse Rate 72 63 73 Pulse Rate [ Bilateral] Respiratory 18 21 Rate Respiratory Rate [Bilateral ] Blood Pressure 115/67 137/69 127/64 O2 Sat by Pulse 94 90 Oximetry 03/31/21 03/31/21 03/31/21 07:40 07:50 08:00 Pulse Rate 63 63 63 Pulse Rate [ Bilateral] Respiratory 13 13 13 Rate Respiratory Rate [Bilateral ] Blood Pressure 124/64 132/66 132/66 O2 Sat by Pulse 93 93 95 Oximetry 03/31/21 03/31/21 03/31/21 08:10 08:20 08:30 Pulse Rate 61 64 69 Pulse Rate [ Bilateral] Respiratory 12 17 20 Rate Respiratory Rate [Bilateral ] Blood Pressure 129/66 142/73 142/73 O2 Sat by Pulse 95 92 93 Oximetry 03/31/21 03/31/21 03/31/21 08:40 08:50 08:55 Pulse Rate 61 59 L Pulse Rate [ 68 Bilateral] Respiratory 15 20 Rate Respiratory 20 Rate [Bilateral ] Blood Pressure 135/71 140/72 O2 Sat by Pulse 94 94 Oximetry 03/31/21 03/31/21 03/31/21 09:00 09:01 09:10 Pulse Rate 65 59 L Pulse Rate [ Bilateral] Respiratory 16 22 Rate Respiratory Rate [Bilateral ] Blood Pressure 140/72 142/73 O2 Sat by Pulse 95 95 95 Oximetry 03/31/21 03/31/21 03/31/21 09:20 09:30 09:40 Pulse Rate 60 67 69 Pulse Rate [ Bilateral] Respiratory 14 19 25 H Rate Respiratory Rate [Bilateral ] Blood Pressure 154/78 154/78 148/74 O2 Sat by Pulse 93 94 93 Oximetry 03/31/21 03/31/21 03/31/21 09:50 10:00 10:12 Pulse Rate 69 62 69 Pulse Rate [ Bilateral] Respiratory 17 19 Rate Respiratory Rate [Bilateral ] Blood Pressure 132/74 132/74 O2 Sat by Pulse 92 Oximetry 03/31/21 12:00 Pulse Rate Pulse Rate [ Bilateral] Respiratory Rate Respiratory Rate [Bilateral ] Blood Pressure O2 Sat by Pulse 95 Oximetry General appearance: Present: no acute distress - EENT Eyes: EOM intact ENT: hearing intact - Neck Neck: supple - Respiratory Respiratory effort: normal Extremities: no ischemia, pulses intact (Palpable dorsalis pedis pulses bilaterally. No ischemia of the feet.), normal temperature, normal color - Gastrointestinal General gastrointestinal: Present: soft, non-tender - Psychiatric Psychiatric: appropriate mood/affect, cooperative - Labs CBC & Chem 7: 03/31/21 04:49 03/31/21 04:49 Labs: Abnormal lab results 03/31/21 03/31/21 Range/Units 04:49 04:49 WBC 14.7 H (4.5-11.0) K/mm3 Plt Count 122 L (140-440) K/mm3 Lymph % (Auto) 9.6 L (13.4-35.0) % [place] % (Auto) 13.7 H (0.0-7.3) % [place] # (Auto) 2.0 H (0.0-0.8) K/mm3 Seg Neutrophils % 76.4 H (40.0-70.0) % Seg Neutrophils # 11.2 H (1.8-7.7) K/mm3 Glucose 123 H (75-100) mg/dL Calcium 8.0 L (8.4-10.2) mg/dL Medications & Allergies - Medications Allergies/Adverse Reactions: Allergies No Known Allergies Allergy (Verified 03/29/21 02:38) Home Medications: Home Medications Medication Instructions Recorded Confirmed Last Taken Type Amiodarone [Cordarone 200 MG TAB] 100 mg PO DAILY 03/29/21 03/29/21 03/28/21 History Active Medications: Generic Name Dose Route Start Last Admin Trade Name Freq PRN Reason Stop Dose Admin Acetaminophen 650 mg 03/29/21 04:44 Acetaminophen 325 Mg Tab PO Q4H PRN Pain MILD(1-3)/Fever >100.5/AVILA Albuterol 2.5 mg 03/29/21 04:44 Albuterol 2.5 Mg/3 Ml Nebu IH Q4HRT PRN Shortness Of Breath Albuterol/Ipratropium 1 ampul 03/29/21 08:00 03/31/21 08:58 Ipratropium/Albuterol Sulfate 3 Ml Ampul.Neb IH 1 ampul Q6HRT BRIAN Administration Alprazolam 1 mg 03/30/21 10:38 03/31/21 11:39 Alprazolam 1 Mg Tab PO 1 mg BID BRIAN Administration Famotidine 20 mg 03/29/21 10:00 03/31/21 10:07 Famotidine 20 Mg/2 Ml Inj IV 20 mg BID BRIAN Administration Hydromorphone HCl 0.5 mg 03/29/21 04:44 Hydromorphone 1 Mg/1 Ml Inj IV Q3H PRN Pain , Severe (7-10) Labetalol HCl 200 mg/ Dextrose 200 mls @ 120 mls/hr 03/31/21 06:00 03/31/21 12:21 IV 4 mg/min TITR BRIAN 240 mls/hr Administration Protocol 2 MG/MIN Labetalol HCl 200 mg 03/31/21 10:00 03/31/21 10:12 Labetalol 200 Mg Tab PO 200 mg BID BRIAN Administration Nifedipine 30 mg 03/30/21 10:00 03/31/21 10:11 Nifedipine Xl 30 Mg Tab PO 30 mg QDAY BRIAN Administration Ondansetron HCl 4 mg 03/29/21 04:44 Ondansetron 4 Mg/2 Ml Inj IV Q8H PRN Nausea And Vomiting Oxycodone/Acetaminophen 1 tab 03/29/21 04:44 Oxycodone /Acetaminophen 5-325mg Tab PO Q6H PRN Pain, Moderate (4-6) Sodium Chloride 10 ml 03/29/21 10:00 03/31/21 10:08 Sodium Chloride 0.9% 10 Ml Flush Syringe IV 10 ml BID BRIAN Administration Sodium Chloride 10 ml 03/29/21 04:44 Sodium Chloride 0.9% 10 Ml Flush Syringe IV PRN PRN LINE FLUSH Zolpidem Tartrate 5 mg 03/29/21 18:31 Zolpidem 5 Mg Tab PO QHS PRN Sleep
[2021-03-31] MEDS: HYDROmorphone 1 MG/1 ML INJ IV PRN (19:50)
[2021-04-01] MEDS: HYDROmorphone 1 MG/1 ML INJ IV PRN ×2 (03:40→19:10)
[2021-04-01] MEDS: IPRATROPIUM/ALBUTEROL SULFATE 3 ML AMPUL.NEB IH SCH ×3 (04:09→14:06)
[2021-04-01 04:17] LABS: Basophils % (Auto) 0.3 % (0.0-1.8); Eosinophils # (Auto) 0.2 K/mm3 (0.0-0.4); Eosinophils % (Auto) 1.5 % (0.0-4.3); Hematocrit 36.8 % (35.5-45.6); Hemoglobin 12.3 gm/dl (11.8-15.2); Lymphocytes # (Auto) 1.7 K/mm3 (1.2-5.4); Lymphocytes % (Auto) 13.4 % (13.4-35.0); Mean Corpuscular HGB Conc 34 % (32-34); Mean Corpuscular Volume 92 fl (84-94); Monocytes # (Auto) 1.9 K/mm3 (0.0-0.8); Monocytes % (Auto) 15.7 % (0.0-7.3); Platelet Count 108 K/mm3 (140-440); Red Cell Distribution Width 13.3 % (13.2-15.2)
[2021-04-01] MEDS: labetaloL 200 MG in DEXTROSE 5% IN WATER 160 ML IV SCH ×2 (05:36→10:16)
--- NOTE | 2021-04-01 09:58 | Progress Note ---
Assessment and Plan 66 y/o male with aortic dissection type B, secondary to uncontrolled hypertension and tachycardia. 04/01/21: Suggest increasing oral labetalol therapy and educate nursing that need for lower BP and HR. His evening dose of labetalol was not given. Not sure if a physician was contacted but the rate on the drip could have been lowered to accommodate giving oral meds. He has to be weaned off the drip in order to be discharged and that will require oral therapy. 1. Cards consulted and suggested esomolol drip 2. Titrate drip to parameters as listed by cards 3. Would suggest adding oral therapy now and titrating drip down to achieve desired heart rate and bp. If waiting until drip does it by itself, maybe difficult to control without the oral therapy already on board. 4. Once off drip can be downgraded from ICU status. Subjective Date of service: 04/01/21 Principal diagnosis: Aortic Dissection Interval history: Patient seen yesterday but meditech down so unable to complete note. On labetalol drip and now HR and BP are very close to goal. Not documented what rate drip is at right now. Objective - Constitutional Vitals: Vital Signs - 12hr 03/31/21 03/31/21 03/31/21 22:00 22:30 23:00 Pulse Rate 58 L 58 L 57 L Pulse Rate [ Bilateral] Respiratory 14 16 18 Rate Respiratory Rate [Bilateral ] Blood Pressure 104/60 100/60 101/59 O2 Sat by Pulse 91 93 Oximetry 03/31/21 03/31/21 04/01/21 23:30 23:52 00:00 Pulse Rate 60 56 L 56 L Pulse Rate [ Bilateral] Respiratory 15 13 13 Rate Respiratory Rate [Bilateral ] Blood Pressure 106/58 104/59 104/59 O2 Sat by Pulse Oximetry 04/01/21 04/01/21 04/01/21 00:30 01:00 01:30 Pulse Rate 57 L 57 L 62 Pulse Rate [ Bilateral] Respiratory 20 22 19 Rate Respiratory Rate [Bilateral ] Blood Pressure 103/54 106/59 107/59 O2 Sat by Pulse 93 92 92 Oximetry 04/01/21 04/01/21 04/01/21 02:00 02:30 03:00 Pulse Rate 62 55 L 57 L Pulse Rate [ Bilateral] Respiratory 21 22 16 Rate Respiratory Rate [Bilateral ] Blood Pressure 111/63 113/63 115/61 O2 Sat by Pulse 93 93 Oximetry 04/01/21 04/01/21 04/01/21 03:30 04:00 04:30 Pulse Rate 56 L 58 L 62 Pulse Rate [ Bilateral] Respiratory 22 18 20 Rate Respiratory Rate [Bilateral ] Blood Pressure 120/64 125/67 118/66 O2 Sat by Pulse 94 95 Oximetry 04/01/21 04/01/21 04/01/21 05:00 05:30 06:00 Pulse Rate 60 58 L 59 L Pulse Rate [ Bilateral] Respiratory 14 23 14 Rate Respiratory Rate [Bilateral ] Blood Pressure 128/69 118/66 124/68 O2 Sat by Pulse 94 94 93 Oximetry 04/01/21 04/01/21 04/01/21 06:30 07:00 07:30 Pulse Rate 59 L 59 L 58 L Pulse Rate [ Bilateral] Respiratory 15 14 15 Rate Respiratory Rate [Bilateral ] Blood Pressure 124/72 126/69 119/63 O2 Sat by Pulse 93 94 93 Oximetry 04/01/21 04/01/21 04/01/21 07:43 08:00 08:30 Pulse Rate 60 68 Pulse Rate [ Bilateral] Respiratory 14 18 Rate Respiratory Rate [Bilateral ] Blood Pressure 127/61 124/69 O2 Sat by Pulse 95 93 92 Oximetry 04/01/21 04/01/21 04/01/21 09:00 09:08 09:31 Pulse Rate 58 L Pulse Rate [ 65 Bilateral] Respiratory 17 Rate Respiratory 20 Rate [Bilateral ] Blood Pressure 126/66 O2 Sat by Pulse 93 93 Oximetry - Labs CBC & Chem 7: 04/01/21 03:43 03/31/21 04:49 Labs: Abnormal lab results 04/01/21 Range/Units 03:43 WBC 12.3 H (4.5-11.0) K/mm3 Plt Count 108 L (140-440) K/mm3 [place] % (Auto) 15.7 H (0.0-7.3) % [place] # (Auto) 1.9 H (0.0-0.8) K/mm3 Seg Neutrophils # 8.5 H (1.8-7.7) K/mm3 Medications & Allergies - Medications Allergies/Adverse Reactions: Allergies No Known Allergies Allergy (Verified 03/29/21 02:38) Home Medications: Home Medications Medication Instructions Recorded Confirmed Last Taken Type Amiodarone [Cordarone 200 MG TAB] 100 mg PO DAILY 03/29/21 03/29/21 03/28/21 History Active Medications: Generic Name Dose Route Start Last Admin Trade Name Freq PRN Reason Stop Dose Admin Acetaminophen 650 mg 03/29/21 04:44 Acetaminophen 325 Mg Tab PO Q4H PRN Pain MILD(1-3)/Fever >100.5/AVILA Albuterol 2.5 mg 03/29/21 04:44 Albuterol 2.5 Mg/3 Ml Nebu IH Q4HRT PRN Shortness Of Breath Albuterol/Ipratropium 1 ampul 03/29/21 08:00 04/01/21 09:08 Ipratropium/Albuterol Sulfate 3 Ml Ampul.Neb IH 1 ampul Q6HRT BRIAN Administration Alprazolam 1 mg 03/30/21 10:38 03/31/21 23:23 Alprazolam 1 Mg Tab PO 1 mg BID BRIAN Administration Famotidine 20 mg 03/29/21 10:00 03/31/21 23:23 Famotidine 20 Mg/2 Ml Inj IV 20 mg BID BRIAN Administration Hydromorphone HCl 0.5 mg 03/29/21 04:44 04/01/21 03:40 Hydromorphone 1 Mg/1 Ml Inj IV 0.5 mg Q3H PRN Administration Pain , Severe (7-10) Labetalol HCl 200 mg/ Dextrose 200 mls @ 120 mls/hr 03/31/21 06:00 04/01/21 08:30 IV Infused TITR BRIAN Titration Protocol 2 MG/MIN Labetalol HCl 200 mg 03/31/21 10:00 03/31/21 23:52 Labetalol 200 Mg Tab PO Not Given BID BRIAN Ondansetron HCl 4 mg 03/29/21 04:44 Ondansetron 4 Mg/2 Ml Inj IV Q8H PRN Nausea And Vomiting Oxycodone/Acetaminophen 1 tab 03/29/21 04:44 Oxycodone /Acetaminophen 5-325mg Tab PO Q6H PRN Pain, Moderate (4-6) Sodium Chloride 10 ml 03/29/21 10:00 03/31/21 23:23 Sodium Chloride 0.9% 10 Ml Flush Syringe IV 10 ml BID BRIAN Administration Sodium Chloride 10 ml 03/29/21 04:44 Sodium Chloride 0.9% 10 Ml Flush Syringe IV PRN PRN LINE FLUSH Zolpidem Tartrate 5 mg 03/29/21 18:31 Zolpidem 5 Mg Tab PO QHS PRN Sleep
[2021-04-01] MEDS: FAMOTIDINE 20 MG/2 ML INJ IV SCH ×2 (10:16→21:55)
[2021-04-01] MEDS: ALPRAZolam 1 MG TAB PO SCH ×2 (10:17→21:55)
--- NOTE | 2021-04-01 12:25 | Progress Note ---
Assessment and Plan 66-year-old male with type B aortic dissection on medical management. Systolic blood pressure less than 120, and optimally, heart rate less than 60. Recommend labetalol. Calcium channel blockers are contraindicated. IV medications need to be transitioned to oral blood pressure medications. Cannot hold oral blood pressure medications as this will delay transition. Patient does not meet criteria for acute TEVAR intervention. His symptoms are well controlled. After 2 weeks, he can follow-up with tertiary care center who may consider him for TEVAR. Family requested that I contact them and I did, updating them with his status. Unfortunately, there is confusion regarding his ability to fly. His wants him to have no risk with travel. Everything in medicine is a risk benefit analysis. They expect there to be no risk with him flying for an extended period of time without having access to a hospital which is impossible. There is always a risk with a patient flying with an aortic dissection, as they could suffer from hypertensive urgency/emergency worsening the dissection. This risk is highest in the first few months. Unfortunately, the patient's is from [place] and his medical care needs to be arranged from [place] and therefore, when he is medically stable, as long as he can take his medicines, the benefits of him flying back to [place] probably outweigh the transitory risks. Cardiology, watermelon harvesting supervisor, and the hospitalist service may need to address this as well. Subjective Date of service: 04/01/21 Principal diagnosis: Aortic Dissection Interval history: No chest pain. No abdominal pain. No back pain. No postprandial discomfort. No flank discomfort. No shortness of breath. Overall doing well. Reviewed vitals. Discussed with nurse to increase labetalol to keep blood pressure less than 120, and optimally, heart rate less than 60. Objective - Constitutional Vitals: Vital Signs - 12hr 04/01/21 04/01/21 04/01/21 00:30 01:00 01:30 Pulse Rate 57 L 57 L 62 Pulse Rate [ Bilateral] Respiratory 20 22 19 Rate Respiratory Rate [Bilateral ] Blood Pressure 103/54 106/59 107/59 O2 Sat by Pulse 93 92 92 Oximetry 04/01/21 04/01/21 04/01/21 02:00 02:30 03:00 Pulse Rate 62 55 L 57 L Pulse Rate [ Bilateral] Respiratory 21 22 16 Rate Respiratory Rate [Bilateral ] Blood Pressure 111/63 113/63 115/61 O2 Sat by Pulse 93 93 Oximetry 04/01/21 04/01/21 04/01/21 03:30 04:00 04:30 Pulse Rate 56 L 58 L 62 Pulse Rate [ Bilateral] Respiratory 22 18 20 Rate Respiratory Rate [Bilateral ] Blood Pressure 120/64 125/67 118/66 O2 Sat by Pulse 94 95 Oximetry 04/01/21 04/01/21 04/01/21 05:00 05:30 06:00 Pulse Rate 60 58 L 59 L Pulse Rate [ Bilateral] Respiratory 14 23 14 Rate Respiratory Rate [Bilateral ] Blood Pressure 128/69 118/66 124/68 O2 Sat by Pulse 94 94 93 Oximetry 04/01/21 04/01/21 04/01/21 06:30 07:00 07:30 Pulse Rate 59 L 59 L 58 L Pulse Rate [ Bilateral] Respiratory 15 14 15 Rate Respiratory Rate [Bilateral ] Blood Pressure 124/72 126/69 119/63 O2 Sat by Pulse 93 94 93 Oximetry 04/01/21 04/01/21 04/01/21 07:43 08:00 08:30 Pulse Rate 60 68 Pulse Rate [ Bilateral] Respiratory 14 18 Rate Respiratory Rate [Bilateral ] Blood Pressure 127/61 124/69 O2 Sat by Pulse 95 93 92 Oximetry 04/01/21 04/01/21 04/01/21 09:00 09:08 09:16 Pulse Rate 58 L 60 Pulse Rate [ Bilateral] Respiratory 17 16 Rate Respiratory Rate [Bilateral ] Blood Pressure 126/66 118/68 O2 Sat by Pulse 93 93 94 Oximetry 04/01/21 04/01/21 04/01/21 09:30 09:31 09:46 Pulse Rate 61 58 L Pulse Rate [ 65 Bilateral] Respiratory 17 14 Rate Respiratory 20 Rate [Bilateral ] Blood Pressure 121/73 127/68 O2 Sat by Pulse 92 92 Oximetry 04/01/21 04/01/21 04/01/21 10:00 10:16 10:30 Pulse Rate 64 65 67 Pulse Rate [ Bilateral] Respiratory 17 20 23 Rate Respiratory Rate [Bilateral ] Blood Pressure 130/75 125/73 133/70 O2 Sat by Pulse 92 88 84 Oximetry 04/01/21 04/01/21 04/01/21 10:46 11:00 11:16 Pulse Rate 65 64 60 Pulse Rate [ Bilateral] Respiratory 22 22 27 H Rate Respiratory Rate [Bilateral ] Blood Pressure 112/59 133/70 119/66 O2 Sat by Pulse 91 92 93 Oximetry General appearance: Present: no acute distress - EENT Eyes: EOM intact ENT: hearing intact - Respiratory Respiratory effort: normal Extremities: pulses intact (dorsalis pedis palpable), normal temperature, normal color - Gastrointestinal General gastrointestinal: Present: soft, non-tender - Psychiatric Psychiatric: appropriate mood/affect, cooperative - Labs CBC & Chem 7: 04/01/21 03:43 03/31/21 04:49 Labs: Abnormal lab results 04/01/21 Range/Units 03:43 WBC 12.3 H (4.5-11.0) K/mm3 Plt Count 108 L (140-440) K/mm3 [place] % (Auto) 15.7 H (0.0-7.3) % [place] # (Auto) 1.9 H (0.0-0.8) K/mm3 Seg Neutrophils # 8.5 H (1.8-7.7) K/mm3 Medications & Allergies - Medications Allergies/Adverse Reactions: Allergies No Known Allergies Allergy (Verified 03/29/21 02:38) Home Medications: Home Medications Medication Instructions Recorded Confirmed Last Taken Type Amiodarone [Cordarone 200 MG TAB] 100 mg PO DAILY 03/29/21 03/29/21 03/28/21 History Active Medications: Generic Name Dose Route Start Last Admin Trade Name Freq PRN Reason Stop Dose Admin Acetaminophen 650 mg 03/29/21 04:44 Acetaminophen 325 Mg Tab PO Q4H PRN Pain MILD(1-3)/Fever >100.5/AVILA Albuterol 2.5 mg 03/29/21 04:44 Albuterol 2.5 Mg/3 Ml Nebu IH Q4HRT PRN Shortness Of Breath Albuterol/Ipratropium 1 ampul 03/29/21 08:00 04/01/21 09:08 Ipratropium/Albuterol Sulfate 3 Ml Ampul.Neb IH 1 ampul Q6HRT BRIAN Administration Alprazolam 1 mg 03/30/21 10:38 04/01/21 10:17 Alprazolam 1 Mg Tab PO Not Given BID BRIAN Famotidine 20 mg 03/29/21 10:00 04/01/21 10:16 Famotidine 20 Mg/2 Ml Inj IV 20 mg BID BRIAN Administration Hydromorphone HCl 0.5 mg 03/29/21 04:44 04/01/21 03:40 Hydromorphone 1 Mg/1 Ml Inj IV 0.5 mg Q3H PRN Administration Pain , Severe (7-10) Labetalol HCl 200 mg/ Dextrose 200 mls @ 120 mls/hr 03/31/21 06:00 04/01/21 11:18 IV 2 mg/min TITR BRIAN 120 mls/hr Titration Protocol 2 MG/MIN Labetalol HCl 200 mg 03/31/21 10:00 04/01/21 10:16 Labetalol 200 Mg Tab PO 200 mg BID BRIAN Administration Ondansetron HCl 4 mg 03/29/21 04:44 Ondansetron 4 Mg/2 Ml Inj IV Q8H PRN Nausea And Vomiting Oxycodone/Acetaminophen 1 tab 03/29/21 04:44 Oxycodone /Acetaminophen 5-325mg Tab PO Q6H PRN Pain, Moderate (4-6) Sodium Chloride 10 ml 03/29/21 10:00 04/01/21 10:16 Sodium Chloride 0.9% 10 Ml Flush Syringe IV 10 ml BID BRIAN Administration Sodium Chloride 10 ml 03/29/21 04:44 Sodium Chloride 0.9% 10 Ml Flush Syringe IV PRN PRN LINE FLUSH Zolpidem Tartrate 5 mg 03/29/21 18:31 Zolpidem 5 Mg Tab PO QHS PRN Sleep
[2021-04-01] MEDS ORDERED: MAGNESIUM CITRATE 300 ML ORAL LIQD PO PRN (13:00)
--- NOTE | 2021-04-01 13:18 | Progress Note ---
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 Paroxysmal atrial flutter fibrillation currently he is in sinus rhythm Patient is not a candidate at this time for anticoagulation. Hypertension on labetalol Patient is not a candidate for oral anticoagulation. We will obtain an echocardiogram for LVEF assessment and repeat a 12 lead ECG. Subjective Date of service: 04/01/21 Principal diagnosis: Aortic Dissection Interval history: No cardiac complaints. Currently, he is stable sinus rhythm on telemetry. Objective Vital Signs Temp Pulse Pulse Resp Resp BP BP 04/01/21 12:16 60 26 H 114/62 04/01/21 12:00 68 19 119/62 04/01/21 11:46 60 27 H 119/62 04/01/21 11:30 59 L 18 124/62 04/01/21 11:16 60 27 H 119/66 04/01/21 11:00 64 22 133/70 04/01/21 10:46 65 22 112/59 04/01/21 10:30 67 23 133/70 04/01/21 10:16 65 20 125/73 04/01/21 10:00 64 17 130/75 04/01/21 09:46 58 L 14 127/68 04/01/21 09:31 65 20 04/01/21 09:30 61 17 121/73 04/01/21 09:16 60 16 118/68 04/01/21 09:08 04/01/21 09:00 58 L 17 126/66 04/01/21 08:30 68 18 124/69 04/01/21 08:00 60 14 127/61 04/01/21 07:43 04/01/21 07:30 58 L 15 119/63 04/01/21 07:00 59 L 14 126/69 04/01/21 06:30 59 L 15 124/72 04/01/21 06:00 59 L 14 124/68 04/01/21 05:30 58 L 23 118/66 04/01/21 05:00 60 14 128/69 04/01/21 04:30 62 20 118/66 04/01/21 04:00 58 L 18 125/67 04/01/21 03:30 56 L 22 120/64 04/01/21 03:00 57 L 16 115/61 04/01/21 02:30 55 L 22 113/63 04/01/21 02:00 62 21 111/63 04/01/21 01:30 62 19 107/59 04/01/21 01:00 57 L 22 106/59 04/01/21 00:30 57 L 20 103/54 04/01/21 00:00 56 L 13 104/59 03/31/21 23:52 56 L 13 104/59 03/31/21 23:30 60 15 106/58 03/31/21 23:00 57 L 18 101/59 03/31/21 22:30 58 L 16 100/60 03/31/21 22:00 58 L 14 104/60 03/31/21 21:30 59 L 24 104/61 03/31/21 21:00 59 L 21 110/61 03/31/21 20:30 62 18 110/60 03/31/21 20:00 57 L 24 109/62 03/31/21 19:45 98.5 F 64 18 119/65 03/31/21 19:30 59 L 23 117/65 03/31/21 19:27 03/31/21 19:26 66 24 03/31/21 19:00 59 L 17 114/65 03/31/21 16:00 Pulse Ox 04/01/21 12:16 92 04/01/21 12:00 91 04/01/21 11:46 92 04/01/21 11:30 93 04/01/21 11:16 93 04/01/21 11:00 92 04/01/21 10:46 91 04/01/21 10:30 84 04/01/21 10:16 88 04/01/21 10:00 92 04/01/21 09:46 92 04/01/21 09:31 04/01/21 09:30 92 04/01/21 09:16 94 04/01/21 09:08 93 04/01/21 09:00 93 04/01/21 08:30 92 04/01/21 08:00 93 04/01/21 07:43 95 04/01/21 07:30 93 04/01/21 07:00 94 04/01/21 06:30 93 04/01/21 06:00 93 04/01/21 05:30 94 04/01/21 05:00 94 04/01/21 04:30 04/01/21 04:00 95 04/01/21 03:30 94 04/01/21 03:00 93 04/01/21 02:30 04/01/21 02:00 04/01/21 01:30 04/01/21 01:00 04/01/21 00:30 04/01/21 00:00 03/31/21 23:52 03/31/21 23:30 03/31/21 23:00 03/31/21 22:30 03/31/21 22:00 03/31/21 21:30 03/31/21 21:00 03/31/21 20:30 03/31/21 20:00 03/31/21 19:45 03/31/21 19:30 03/31/21 19:27 03/31/21 19:26 03/31/21 19:00 03/31/21 16:00 97 - Physical Examination General: No Apparent Distress HEENT: Positive: PERRL Neck: Positive: neck supple Cardiac: Positive: Reg Rate and Rhythm Lungs: Positive: Decreased Breath Sounds Neuro: Positive: Grossly Intact Extremities: Absent: edema - Labs and Meds CBC 04/01/21 Range/Units 03:43 WBC 12.3 H (4.5-11.0) K/mm3 RBC 4.00 (3.65-5.03) M/mm3 Hgb 12.3 (11.8-15.2) gm/dl Hct 36.8 (35.5-45.6) % Plt Count 108 L (140-440) K/mm3 Lymph # (Auto) 1.7 (1.2-5.4) K/mm3 [place] # (Auto) 1.9 H (0.0-0.8) K/mm3 Eos # (Auto) 0.2 (0.0-0.4) K/mm3 Baso # (Auto) 0.0 (0.0-0.1) K/mm3
--- NOTE | 2021-04-01 14:10 | Progress Note ---
Assessment and Plan Brief history 66-year-old male patient traveling from [place] here was running to the airport to catch the plane and missed it he was upset which must have elevated the blood pressure developed some abdominal pain and back pain, presented to the emergency room, CT abdomen and pelvis revealed type B aortic dissection involving the descending aorta extending to the level of renal arteries. No evidence of vascular compromise, patient was hemodynamically stable, however her uncontrolled blood pressures. Patient was started on esmolol drip to titrate to the target blood pressure of less than 120 and heart rate less than 60. Subsequently evaluated by mid level project manager and pulmonary critical, medications optimized. Patient then placed on labetalol as there is esmolol shortage, now transition to oral meds. Patient tested negative for COVID-19 at the beginning of his travel Assessment and plan: --Type B thoracoabdominal aortic dissection ; Patient is s/p esmolol drip per protocol and labetalol drip Titrate systolic blood pressure less than 120 and HR <65/min Transition to oral medication, continue to assess need for medications to achieve blood pressure goal vascular surgeon and cardiology, pulmonary critical following CTA chest and CTA abdomen; 03/29/2021 Type B thoracoabdominal aortic dissection beginning in the distal aortic arch and extending into the infrarenal abdominal aorta dissection does not involve the ascending thoracic aorta dissection extends into the origins of the left s ubclavian artery and the superior mesenteric artery no vessel occlusion or significant stenosis left common iliac aneurysmal dilatation, --Hypertension s/p Esmolol drip and labetalol drip Now on oral medication, continue to adjust to keep BP <120/80 --History of atrial fibrillation; Cardiology following, initiated labetalol, not a candidate for anticoagulation --Abdominal pain Due to aortic dissection now resolved --Nausea & vomiting Resolved ,antiemetics as needed --SIRS: Leukocytosis likely stress-induced Leukocytosis, tachycardia[on admission] Patient has no fever, UA negative Chest x-ray; bilateral atelectasis/no evidence of pneumonia Check blood and urine cultures ,closely monitor --Obesity; BMI 32.9; Patient may need weight reduction when he is medically stable --Full code status --DVT prophylaxis, SCD Disposition: Vascular, cardiology, pulmonary evaluation and recommendations noted and appreciated Closely monitor the patient and adjust management as needed Plan of care reviewed with the patient, patient's nurse, patient's over the phone Disposition; transition to oral medications once target heart rate and blood pressures are reached And patient is clinically stable, and discharge when cleared by consultants daily hospital course: 03/30/2021; Cardiology, pulmonary and vascular following the patient, patient is on esmolol drip titrating heart rate to less than 60 and blood pressure less than 120 systolic . Patient is still awaiting ICU bed assignment, currently in the emergency room I called patient Ms. Gutierrez at [phone] [patient's cousin's phonecont]and explained in detail patient's condition, tests and reports, consultants recommendations, current management, and his progress, discharge planning issues, she had numerous questions, answered all of them, and informed her that the patient will be ready for discharge only when he is medically stable. I encouraged her to call back if she has new concerns. I informed the patient's nurse about my conversation with patient's . 03/31/2021; Esmolol shortage, this morning patient started on labetalol drip per protocol, titrate blood pressure less than 120 systolic and heart rate less than 60/min Low-dose Xanax for anxiety I called patient Ms. Gutierrez at [phone] [patient's cousin's phone ] and discuss again this morning in detail, patient's condition treatment plan Patient's continued progress, his blood pressures and heart rate. She is lluvia rned about the travel plans, she had numerous questions Answered all of them. Also informed that patient is not stable for discharge and travel at this point. 04/01/21: Continue to adjust BP meds, no need for TEVAR per vascular, weaned off from labetalol drip today, initiated on labetalol 200mg 3 times daily, monitor off labetalol drip, continue to monitor BP. Patient denies any chest pain short ness of breath or abdominal pain. Subjective Date of service: 04/01/21 Principal diagnosis: Aortic Dissection Interval history: Patient seen and examined. Medical records and medication list reviewed. No acute event overnight noted by the RN. Patient denies any chest pain or difficulty breathing. Patient is tolerating diet. Patient wants to go home Discussed plan of care at bedside with patient. Objective - Exam Narrative Exam: GENERAL: well-developed and well-nourished white male lying on bed appeared to be in no discomfort. HEENT: Normocephalic. Atraumatic. No conjunctival congestion or icterus. Patient has moist mucous membranes. NECK: Supple. Trachea midline. CHEST/LUNGS: Clear to auscultated bilaterally, breathing nonlabored. No wheezes crackles or rhonchi. HEART/CARDIOVASCULAR: Regular in rate and rhythm. S1 and S2 positive. ABDOMEN: Abdomen is soft, nontender. Patient has normal bowel sounds. SKIN: There is no rash. Warm and dry. NEURO: No focal motor deficit. Follows command. MUSCULOSKELETAL: No joint effusion or tenderness. EXTRIMITY: No edema, no cyanosis or clubbing. PSYCH: Cooperative. - Constitutional Vitals: Vital Signs - 12hr 04/01/21 04/01/21 04/01/21 02:00 02:30 03:00 Pulse Rate 62 55 L 57 L Pulse Rate [ Bilateral] Respiratory 21 22 16 Rate Respiratory Rate [Bilateral ] Blood Pressure 111/63 113/63 115/61 O2 Sat by Pulse 93 93 Oximetry 04/01/21 04/01/21 04/01/21 03:30 04:00 04:30 Pulse Rate 56 L 58 L 62 Pulse Rate [ Bilateral] Respiratory 22 18 20 Rate Respiratory Rate [Bilateral ] Blood Pressure 120/64 125/67 118/66 O2 Sat by Pulse 94 95 Oximetry 04/01/21 04/01/21 04/01/21 05:00 05:30 06:00 Pulse Rate 60 58 L 59 L Pulse Rate [ Bilateral] Respiratory 14 23 14 Rate Respiratory Rate [Bilateral ] Blood Pressure 128/69 118/66 124/68 O2 Sat by Pulse 94 94 93 Oximetry 04/01/21 04/01/21 04/01/21 06:30 07:00 07:30 Pulse Rate 59 L 59 L 58 L Pulse Rate [ Bilateral] Respiratory 15 14 15 Rate Respiratory Rate [Bilateral ] Blood Pressure 124/72 126/69 119/63 O2 Sat by Pulse 93 94 93 Oximetry 04/01/21 04/01/21 04/01/21 07:43 08:00 08:30 Pulse Rate 60 68 Pulse Rate [ Bilateral] Respiratory 14 18 Rate Respiratory Rate [Bilateral ] Blood Pressure 127/61 124/69 O2 Sat by Pulse 95 93 92 Oximetry 04/01/21 04/01/21 04/01/21 09:00 09:08 09:16 Pulse Rate 58 L 60 Pulse Rate [ Bilateral] Respiratory 17 16 Rate Respiratory Rate [Bilateral ] Blood Pressure 126/66 118/68 O2 Sat by Pulse 93 93 94 Oximetry 04/01/21 04/01/21 04/01/21 09:30 09:31 09:46 Pulse Rate 61 58 L Pulse Rate [ 65 Bilateral] Respiratory 17 14 Rate Respiratory 20 Rate [Bilateral ] Blood Pressure 121/73 127/68 O2 Sat by Pulse 92 92 Oximetry 04/01/21 04/01/21 04/01/21 10:00 10:16 10:30 Pulse Rate 64 65 67 Pulse Rate [ Bilateral] Respiratory 17 20 23 Rate Respiratory Rate [Bilateral ] Blood Pressure 130/75 125/73 133/70 O2 Sat by Pulse 92 88 84 Oximetry 04/01/21 04/01/21 04/01/21 10:46 11:00 11:16 Pulse Rate 65 64 60 Pulse Rate [ Bilateral] Respiratory 22 22 27 H Rate Respiratory Rate [Bilateral ] Blood Pressure 112/59 133/70 119/66 O2 Sat by Pulse 91 92 93 Oximetry 04/01/21 04/01/21 04/01/21 11:30 11:46 12:00 Pulse Rate 59 L 60 68 Pulse Rate [ Bilateral] Respiratory 18 27 H 19 Rate Respiratory Rate [Bilateral ] Blood Pressure 124/62 119/62 119/62 O2 Sat by Pulse 93 92 91 Oximetry 04/01/21 12:16 Pulse Rate 60 Pulse Rate [ Bilateral] Respiratory 26 H Rate Respiratory Rate [Bilateral ] Blood Pressure 114/62 O2 Sat by Pulse 92 Oximetry - Labs CBC & Chem 7: 04/01/21 03:43 04/03/21 04:46 Labs: Abnormal lab results 04/01/21 Range/Units 03:43 WBC 12.3 H (4.5-11.0) K/mm3 Plt Count 108 L (140-440) K/mm3 [place] % (Auto) 15.7 H (0.0-7.3) % [place] # (Auto) 1.9 H (0.0-0.8) K/mm3 Seg Neutrophils # 8.5 H (1.8-7.7) K/mm3
[2021-04-01 16:00] LABS: BUN/Creatinine Ratio 13; Blood Urea Nitrogen 13 mg/dL (9-20); Calcium 7.9 mg/dL (8.4-10.2); Hemolysis Index 15
[2021-04-01] MEDS ORDERED: POTASSIUM CHLORIDE ER 20 MEQ TAB PO ONE (18:04)
[2021-04-02 05:20] LABS: BUN/Creatinine Ratio 13; Blood Urea Nitrogen 13 mg/dL (9-20); Calcium 8.1 mg/dL (8.4-10.2); Hemolysis Index 8
--- NOTE | 2021-04-02 11:20 | Progress Note ---
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 Paroxysmal atrial flutter fibrillation currently he is in sinus rhythm. At this time the patient is not a candidate for anticoagulation. Hypertension on labetalol An echocardiogram shows a normal left ventricular systolic function. Recommendations: Will repeat a 12 lead ECG for paroxysmal atrial fibrillation. Optimal hypertension management. Subjective Date of service: 04/02/21 Principal diagnosis: Aortic Dissection Interval history: No cardiac complaints. Blood pressure is not optimal, systolic 147. Currently, he is stable sinus rhythm on telemetry. Objective Vital Signs Temp Pulse Pulse Resp Resp BP BP 04/02/21 06:46 64 15 136/67 04/02/21 06:30 63 16 150/73 04/02/21 06:16 64 15 149/76 04/02/21 06:00 70 33 H 142/86 04/02/21 05:46 80 18 136/69 04/02/21 05:30 65 15 140/67 04/02/21 05:16 64 16 141/71 04/02/21 05:00 71 19 137/74 04/02/21 04:46 69 18 130/71 04/02/21 04:16 72 18 141/69 04/02/21 04:00 64 15 137/67 04/02/21 03:46 65 16 137/66 04/02/21 03:30 67 16 137/67 04/02/21 03:16 68 17 144/65 04/02/21 03:00 65 16 137/67 04/02/21 02:46 66 16 141/67 04/02/21 02:30 66 16 136/70 04/02/21 02:16 68 19 135/68 04/02/21 02:00 68 19 130/68 04/02/21 01:46 72 19 133/65 04/02/21 01:30 65 16 127/67 04/02/21 01:16 64 16 131/63 04/02/21 01:00 64 17 125/62 04/02/21 00:46 65 19 127/61 04/02/21 00:30 67 16 126/60 04/02/21 00:16 66 15 130/64 04/02/21 00:00 65 15 131/62 04/01/21 23:46 68 15 125/65 04/01/21 23:34 66 16 125/65 04/01/21 23:30 67 15 130/62 04/01/21 23:16 65 15 146/70 04/01/21 23:00 63 14 135/71 04/01/21 22:46 63 15 145/73 04/01/21 22:30 68 16 154/68 04/01/21 22:16 64 17 144/78 04/01/21 22:00 71 20 140/75 04/01/21 21:56 73 140/75 04/01/21 21:00 75 22 139/66 04/01/21 20:46 63 14 139/66 04/01/21 20:30 62 14 146/69 04/01/21 20:16 61 14 138/69 04/01/21 19:50 98.7 F 71 20 138/89 04/01/21 19:46 59 L 14 147/67 04/01/21 19:30 60 14 146/70 04/01/21 19:16 60 14 150/71 04/01/21 19:00 63 19 128/66 04/01/21 18:46 76 21 131/65 04/01/21 18:30 79 27 H 134/71 04/01/21 18:16 60 13 128/71 04/01/21 18:00 59 L 13 134/74 04/01/21 17:46 60 13 127/73 04/01/21 17:30 64 17 127/69 04/01/21 17:16 73 20 129/66 04/01/21 17:00 61 17 04/01/21 16:46 68 22 129/66 04/01/21 16:30 66 21 129/65 04/01/21 16:16 63 19 120/65 04/01/21 16:00 60 20 127/69 04/01/21 15:46 59 L 14 127/64 04/01/21 15:30 59 L 13 127/62 04/01/21 15:16 62 18 124/67 04/01/21 15:13 69 04/01/21 15:00 68 17 124/68 04/01/21 14:46 64 18 121/61 04/01/21 14:30 65 17 117/63 04/01/21 14:16 64 19 121/61 04/01/21 14:00 59 L 64 30 H 20 120/63 04/01/21 13:46 64 21 111/60 04/01/21 13:30 61 17 122/62 04/01/21 13:16 60 21 124/61 04/01/21 13:00 59 L 28 H 121/65 04/01/21 12:46 59 L 28 H 114/63 04/01/21 12:30 59 L 28 H 115/61 04/01/21 12:16 60 26 H 114/62 04/01/21 12:00 68 19 119/62 04/01/21 11:46 60 27 H 119/62 04/01/21 11:30 59 L 18 124/62 Pulse Ox 04/02/21 06:46 04/02/21 06:30 04/02/21 06:16 97 04/02/21 06:00 96 04/02/21 05:46 04/02/21 05:30 04/02/21 05:16 04/02/21 05:00 04/02/21 04:46 04/02/21 04:16 94 04/02/21 04:00 94 04/02/21 03:46 95 04/02/21 03:30 94 04/02/21 03:16 95 04/02/21 03:00 95 04/02/21 02:46 94 04/02/21 02:30 95 04/02/21 02:16 93 04/02/21 02:00 95 04/02/21 01:46 93 04/02/21 01:30 94 04/02/21 01:16 94 04/02/21 01:00 94 04/02/21 00:46 94 04/02/21 00:30 94 04/02/21 00:16 94 04/02/21 00:00 94 04/01/21 23:46 94 04/01/21 23:34 93 04/01/21 23:30 94 04/01/21 23:16 94 04/01/21 23:00 94 04/01/21 22:46 94 04/01/21 22:30 93 04/01/21 22:16 93 04/01/21 22:00 94 04/01/21 21:56 04/01/21 21:00 04/01/21 20:46 94 04/01/21 20:30 94 04/01/21 20:16 94 04/01/21 19:50 94 04/01/21 19:46 92 04/01/21 19:30 94 04/01/21 19:16 92 04/01/21 19:00 89 04/01/21 18:46 04/01/21 18:30 85 04/01/21 18:16 95 04/01/21 18:00 95 04/01/21 17:46 94 04/01/21 17:30 94 04/01/21 17:16 91 04/01/21 17:00 94 04/01/21 16:46 90 04/01/21 16:30 93 04/01/21 16:16 92 04/01/21 16:00 95 04/01/21 15:46 95 04/01/21 15:30 93 04/01/21 15:16 04/01/21 15:13 04/01/21 15:00 92 04/01/21 14:46 91 04/01/21 14:30 92 04/01/21 14:16 91 04/01/21 14:00 93 04/01/21 13:46 93 04/01/21 13:30 93 04/01/21 13:16 92 04/01/21 13:00 92 04/01/21 12:46 92 04/01/21 12:30 91 04/01/21 12:16 92 04/01/21 12:00 91 04/01/21 11:46 92 04/01/21 11:30 93 - Physical Examination General: No Apparent Distress HEENT: Positive: PERRL Neck: Positive: neck supple Cardiac: Positive: Reg Rate and Rhythm Lungs: Positive: Decreased Breath Sounds Neuro: Positive: Grossly Intact Abdomen: Positive: Soft Extremities: Absent: edema - Labs and Meds Comprehensive Metabolic Panel 04/01/21 04/02/21 Range/Units 15:08 04:48 Sodium 134 L 137 (137-145) mmol/L Potassium 3.4 L 3.5 L (3.6-5.0) mmol/L Chloride 101.8 101.8 (98-107) mmol/L Carbon Dioxide 22 28 (22-30) mmol/L BUN 13 13 (9-20) mg/dL Creatinine 1.0 1.0 (0.8-1.3) mg/dL Glucose 115 H 104 H (75-100) mg/dL Calcium 7.9 L 8.1 L (8.4-10.2) mg/dL
[2021-04-02] MEDS: IPRATROPIUM/ALBUTEROL SULFATE 3 ML AMPUL.NEB IH SCH ×3 (12:08→19:29)
[2021-04-02] MEDS: ALPRAZolam 1 MG TAB PO SCH ×2 (12:09→22:24)
[2021-04-02] MEDS: FAMOTIDINE 20 MG/2 ML INJ IV SCH ×2 (12:09→22:24)
[2021-04-02] MEDS ORDERED: LOSARTAN 50 MG TAB PO SCH (13:00)
--- NOTE | 2021-04-02 13:05 | Discharge Summary ---
Providers - Providers Date of Admission: 03/30/21 01:11 Date of discharge: 04/05/21 Attending physician: SUSY CHICAS 03/29/21 04:05 Consult to Physician [CONS] Routine Comment: Consulting Provider: ANA PAULA PADILLA Physician Instructions: Reason For Exam: ad 03/29/21 04:56 Consult to Physician [CONS] Routine Comment: Consulting Provider: NHUNG YAN Physician Instructions: Reason For Exam: Aortic dissection 03/29/21 17:39 Consult to Physician [CONS] Routine Comment: Consulting Provider: JOVANY HUIZAR Physician Instructions: Reason For Exam: Aortic dissection 04/01/21 12:10 Physical Therapy Evaluation and Treat [CONS] Stat Comment: pt up out of bed to chair x3 daily Reason For Exam: decrease weakness [facility] Condition: Critical Disposition: 01 HOME / SELF CARE / HOMELESS Final Discharge Diagnosis (Prints w/discharge instructions): --Dissection of the thoracic descending aorta. --Paroxysmal atrial flutter fibrillation. --Hypertension, uncontrolled. --Obesity. Time spent for discharge: 34 minutes Core Measure Documentation - Palliative Care Palliative Care/ Comfort Measures: Not Applicable - Core Measures Any of the following diagnoses?: none Exam - Constitutional Vitals: Temp Pulse Resp BP Pulse Ox 98.7 F 64 15 136/67 97 04/01/21 19:50 04/02/21 06:46 04/02/21 06:46 04/02/21 06:46 04/02/21 06:16 Plan Activity: advance as tolerated Weight Bearing Status: Non-Weight Bearing Diet: low fat, low salt Special Instructions: record daily BP diary Additional Instructions: Please monitor your BP daily. Low salt and low fat diet. Recommend BP <120/80 and HR <80. After 2 weeks, please follow-up with tertiary care center where you may be considerd for TEVAR procedure. Follow up with: AFSANEH JOSEPH MD [Primary Care Provider] - 3-5 Days VALENTIN GALARZA MD [Staff Physician] - 7 Days Prescriptions: Amiodarone [Cordarone 200 MG TAB] 200 mg PO BID #60 tablet Losartan [Cozaar] 100 mg PO QDAY #60 tablet labetaloL [Labetalol 100mg TAB] 300 mg PO TID #90 tablet ALPRAZolam [Xanax TAB] 1 mg PO BID #14 tablet
[2021-04-02] MEDS ORDERED: AMIODARONE 200 MG TAB PO SCH (14:00)
[2021-04-02] MEDS ORDERED: POTASSIUM CHLORIDE ER 20 MEQ TAB PO SCH (14:00)
--- NOTE | 2021-04-02 14:11 | Progress Note ---
Assessment and Plan Brief history 66-year-old male patient traveling from [place] here was running to the airport to catch the plane and missed it he was upset which must have elevated the blood pressure developed some abdominal pain and back pain, presented to the emergency room, CT abdomen and pelvis revealed type B aortic dissection involving the descending aorta extending to the level of renal arteries. No evidence of vascular compromise, patient was hemodynamically stable, however her uncontrolled blood pressures. Patient was started on esmolol drip to titrate to the target blood pressure of less than 120 and heart rate less than 60. Subsequently evaluated by gem expert and pulmonary critical, medications optimized. Patient then placed on labetalol as there is esmolol shortage, now transition to oral meds. Patient tested negative for COVID-19 at the beginning of his travel Assessment and plan: --Type B thoracoabdominal aortic dissection ; Patient is s/p esmolol drip per protocol and labetalol drip Titrate systolic blood pressure less than 120 and HR <65/min Transition to oral medication, continue to assess need for medications to achieve blood pressure goal vascular surgeon and cardiology, pulmonary critical following CTA chest and CTA abdomen; 03/29/2021 Type B thoracoabdominal aortic dissection beginning in the distal aortic arch and extending into the infrarenal abdominal aorta dissection does not involve the ascending thoracic aorta dissection extends into the origins of the left s ubclavian artery and the superior mesenteric artery no vessel occlusion or significant stenosis left common iliac aneurysmal dilatation, --Hypertension s/p Esmolol drip and labetalol drip Now on oral medication, continue to adjust to keep BP <120/80 --History of atrial fibrillation; Cardiology following, initiate amiodarone, not a candidate for anticoagulation --Abdominal pain Due to aortic dissection now resolved --Nausea & vomiting Resolved ,antiemetics as needed --SIRS: Leukocytosis likely stress-induced Leukocytosis, tachycardia[on admission] Patient has no fever, UA negative Chest x-ray; bilateral atelectasis/no evidence of pneumonia Check blood and urine cultures ,closely monitor --Obesity; BMI 32.9; Patient may need weight reduction when he is medically stable --Left hand swelling, due to IV infiltration, recommended RN to provide ice pack on the area, will continue to monitor --Full code status --DVT prophylaxis, SCD Disposition: Vascular, cardiology, pulmonary evaluation and recommendations noted and appreciated Closely monitor the patient and adjust management as needed Plan of care reviewed with the patient, patient's nurse, patient's over the phone Disposition; transition to oral medications once target heart rate and blood pressures are reached And patient is clinically stable, and discharge when cleared by consultants The high probability of a clinically significant, sudden or life threatening deterioration of the system(s) required my full and direct attention, intervention and personal management. The aggregate critical care time was [45] minutes. This time is in addition to time spent performing reported procedures but includes the following: [x] Data Review and interpretation [x] Patient assessment and monitoring of vital signs [x] Documentation [x] Medication orders and management daily hospital course: 03/30/2021; Cardiology, pulmonary and vascular following the patient, patient is on esmolol drip titrating heart rate to less than 60 and blood pressure less than 120 systolic . Patient is still awaiting ICU bed assignment, currently in the emergency room I called patient Ms. Gutierrez at [phone] [patient's cousin's phonecont]and explained in detail patient's condition, tests and reports, consultants recommendations, current management, and his progress, discharge planning issues, she had numerous questions, answered all of them, and informed her that the patient will be ready for discharge only when he is medically stable. I encouraged her to call back if she has new concerns. I informed the patient's nurse about my conversation with patient's . 03/31/2021; Esmolol shortage, this morning patient started on labetalol drip per protocol, titrate blood pressure less than 120 systolic and heart rate less than 60/min Low-dose Xanax for anxiety I called patient Ms. Gutierrez at [phone] [patient's cousin's phone ] and discuss again this morning in detail, patient's condition treatment plan Patient's continued progress, his blood pressures and heart rate. She is concerned about the travel plans, she had numerous questions Answered all of them. Also informed that patient is not stable for discharge and travel at this point. 04/01/21: Continue to adjust BP meds, no need for TEVAR per vascular, weaned off from labetalol drip today, initiated on oral medications, monitor off labetalol drip, continue to monitor BP. Patient denies any chest pain shortness of breath or abdominal pain. 04/02/21: cont to adjust medications for BP <120/80, added losartan and a mioderone. Discussed briefly with patient, patient and his friend at the bedside. Also called patient earlier to provide updates. Subjective Date of service: 04/02/21 Principal diagnosis: Aortic Dissection Interval history: Patient seen and examined. Medical records and medication list reviewed. No acute event overnight noted by the RN. Patient denies any chest pain or difficulty breathing. Patient is tolerating diet. Complains of left hand swelling Discussed plan of care at bedside with patient. Objective - Exam Narrative Exam: GENERAL: well-developed and well-nourished white male lying on bed appeared to be in no discomfort. HEENT: Normocephalic. Atraumatic. No conjunctival congestion or icterus. Patie nt has moist mucous membranes. NECK: Supple. Trachea midline. CHEST/LUNGS: Clear to auscultated bilaterally, breathing nonlabored. No wheezes crackles or rhonchi. HEART/CARDIOVASCULAR: Regular in rate and rhythm. S1 and S2 positive. ABDOMEN: Abdomen is soft, nontender. Patient has normal bowel sounds. SKIN: There is no rash. Warm and dry. NEURO: No focal motor deficit. Follows command. MUSCULOSKELETAL: No joint effusion or tenderness. EXTRIMITY: No edema, no cyanosis or clubbing. Left hand swelling PSYCH: Cooperative. - Constitutional Vitals: Vital Signs - 12hr 04/02/21 04/02/21 04/02/21 02:16 02:30 02:46 Pulse Rate 68 66 66 Respiratory 19 16 16 Rate Blood Pressure 135/68 136/70 141/67 O2 Sat by Pulse 93 95 94 Oximetry 04/02/21 04/02/21 04/02/21 03:00 03:16 03:30 Pulse Rate 65 68 67 Respiratory 16 17 16 Rate Blood Pressure 137/67 144/65 137/67 O2 Sat by Pulse 95 95 94 Oximetry 04/02/21 04/02/21 04/02/21 03:46 04:00 04:16 Pulse Rate 65 64 72 Respiratory 16 15 18 Rate Blood Pressure 137/66 137/67 141/69 O2 Sat by Pulse 95 94 94 Oximetry 04/02/21 04/02/21 04/02/21 04:46 05:00 05:16 Pulse Rate 69 71 64 Respiratory 18 19 16 Rate Blood Pressure 130/71 137/74 141/71 O2 Sat by Pulse Oximetry 04/02/21 04/02/21 04/02/21 05:30 05:46 06:00 Pulse Rate 65 80 70 Respiratory 15 18 33 H Rate Blood Pressure 140/67 136/69 142/86 O2 Sat by Pulse 96 Oximetry 04/02/21 04/02/21 04/02/21 06:16 06:30 06:46 Pulse Rate 64 63 64 Respiratory 15 16 15 Rate Blood Pressure 149/76 150/73 136/67 O2 Sat by Pulse 97 Oximetry - Labs CBC & Chem 7: 04/01/21 03:43 04/03/21 04:46 Labs: Abnormal lab results 04/01/21 04/02/21 Range/Units 15:08 04:48 Sodium 134 L (137-145) mmol/L Potassium 3.4 L 3.5 L (3.6-5.0) mmol/L Glucose 115 H 104 H (75-100) mg/dL Calcium 7.9 L 8.1 L (8.4-10.2) mg/dL
--- NOTE | 2021-04-02 14:41 | Progress Note ---
Assessment and Plan 66 y/o male with aortic dissection type B, secondary to uncontrolled hypertension and tachycardia. 04/02/21: Working to get patient upstairs to better manage HR and BP. Keep PRN labetalol present. 04/01/21: Suggest increasing oral labetalol therapy and educate nursing that need for lower BP and HR. His evening dose of labetalol was not given. Not sure if a physician was contacted but the rate on the drip could have been lowered to accommodate giving oral meds. He has to be weaned off the drip in order to be discharged and that will require oral therapy. 1. Cards consulted and suggested esomolol drip 2. Titrate drip to parameters as listed by cards 3. Would suggest adding oral therapy now and titrating drip down to achieve desired heart rate and bp. If waiting until drip does it by itself, maybe difficult to control without the oral therapy already on board. 4. Once off drip can be downgraded from ICU status. Subjective Date of service: 04/02/21 Principal diagnosis: Aortic Dissection Interval history: Labetalol drip stopped but no PRN meds were given. Had some elevated BP's and HR's that were beyond the parameters given for administration. Not sure why not given. Objective - Constitutional Vitals: Vital Signs - 12hr 04/02/21 04/02/21 04/02/21 02:46 03:00 03:16 Pulse Rate 66 65 68 Respiratory 16 16 17 Rate Blood Pressure 141/67 137/67 144/65 O2 Sat by Pulse 94 95 95 Oximetry 04/02/21 04/02/21 04/02/21 03:30 03:46 04:00 Pulse Rate 67 65 64 Respiratory 16 16 15 Rate Blood Pressure 137/67 137/66 137/67 O2 Sat by Pulse 94 95 94 Oximetry 04/02/21 04/02/21 04/02/21 04:16 04:46 05:00 Pulse Rate 72 69 71 Respiratory 18 18 19 Rate Blood Pressure 141/69 130/71 137/74 O2 Sat by Pulse 94 Oximetry 04/02/21 04/02/21 04/02/21 05:16 05:30 05:46 Pulse Rate 64 65 80 Respiratory 16 15 18 Rate Blood Pressure 141/71 140/67 136/69 O2 Sat by Pulse Oximetry 04/02/21 04/02/21 04/02/21 06:00 06:16 06:30 Pulse Rate 70 64 63 Respiratory 33 H 15 16 Rate Blood Pressure 142/86 149/76 150/73 O2 Sat by Pulse 96 97 Oximetry 04/02/21 06:46 Pulse Rate 64 Respiratory 15 Rate Blood Pressure 136/67 O2 Sat by Pulse Oximetry - Labs CBC & Chem 7: 04/01/21 03:43 04/02/21 04:48 Labs: Abnormal lab results 04/01/21 04/02/21 Range/Units 15:08 04:48 Sodium 134 L (137-145) mmol/L Potassium 3.4 L 3.5 L (3.6-5.0) mmol/L Glucose 115 H 104 H (75-100) mg/dL Calcium 7.9 L 8.1 L (8.4-10.2) mg/dL Medications & Allergies - Medications Allergies/Adverse Reactions: Allergies No Known Allergies Allergy (Verified 03/29/21 02:38) Home Medications: Home Medications Medication Instructions Recorded Confirmed Last Taken Type Amiodarone [Cordarone 200 MG TAB] 100 mg PO QDAY #30 tablet 04/02/21 Unknown Rx Losartan [Cozaar] 50 mg PO QDAY #30 tablet 04/02/21 Unknown Rx labetaloL [Labetalol 200mg TAB] 200 mg PO TID #90 tablet 04/02/21 Unknown Rx Active Medications: Generic Name Dose Route Start Last Admin Trade Name Freq PRN Reason Stop Dose Admin Acetaminophen 650 mg 03/29/21 04:44 Acetaminophen 325 Mg Tab PO Q4H PRN Pain MILD(1-3)/Fever >100.5/AVILA Albuterol 2.5 mg 03/29/21 04:44 Albuterol 2.5 Mg/3 Ml Nebu IH Q4HRT PRN Shortness Of Breath Albuterol/Ipratropium 1 ampul 03/29/21 08:00 04/02/21 12:08 Ipratropium/Albuterol Sulfate 3 Ml Ampul.Neb IH Not Given Q6HRT BRIAN Alprazolam 1 mg 03/30/21 10:38 04/02/21 12:09 Alprazolam 1 Mg Tab PO 1 mg BID BRIAN Administration Amiodarone HCl 100 mg 04/02/21 14:00 Amiodarone 200 Mg Tab PO QDAY BRIAN Famotidine 20 mg 03/29/21 10:00 04/02/21 12:09 Famotidine 20 Mg/2 Ml Inj IV 20 mg BID BRIAN Administration Hydromorphone HCl 0.5 mg 03/29/21 04:44 04/01/21 19:10 Hydromorphone 1 Mg/1 Ml Inj IV 0.5 mg Q3H PRN Administration Pain , Severe (7-10) Labetalol HCl 200 mg 04/01/21 14:00 04/02/21 12:09 Labetalol 200 Mg Tab PO 200 mg TID BRIAN Administration Labetalol HCl 10 mg 04/01/21 13:28 Labetalol 20 Mg/4 Ml Inj IV Q4H PRN Hypertension Losartan Potassium 50 mg 04/02/21 13:00 Losartan 50 Mg Tab PO QDAY BRIAN Magnesium Citrate 300 ml 04/01/21 13:00 Magnesium Citrate 300 Ml Oral Liqd PO QDAY PRN Bowel Movement Ondansetron HCl 4 mg 03/29/21 04:44 Ondansetron 4 Mg/2 Ml Inj IV Q8H PRN Nausea And Vomiting Oxycodone/Acetaminophen 1 tab 03/29/21 04:44 Oxycodone /Acetaminophen 5-325mg Tab PO Q6H PRN Pain, Moderate (4-6) Potassium Chloride 40 meq 04/02/21 14:00 Potassium Chloride Er 20 Meq Tab PO 04/02/21 18:00 ONCE@1400 BRIAN Sodium Chloride 10 ml 03/29/21 10:00 04/02/21 12:09 Sodium Chloride 0.9% 10 Ml Flush Syringe IV 10 ml BID BRIAN Administration Sodium Chloride 10 ml 03/29/21 04:44 Sodium Chloride 0.9% 10 Ml Flush Syringe IV PRN PRN LINE FLUSH Zolpidem Tartrate 5 mg 03/29/21 18:31 Zolpidem 5 Mg Tab PO QHS PRN Sleep
--- NOTE | 2021-04-02 15:08 | Progress Note ---
Assessment and Plan Patient is a 66-year-old male with a aortic dissection. He is pain-free at this time however he continues to have difficulty with control of his blood pressure and occasional spikes with his heart rate above 70. It is imperative that his heart rate is maintained below 70 and a blood pressure below 120/80. His esmolol drip has been weaned off and he is on labetalol 200 mg p.o. 3 times daily however there are as needed medications to treat the elevated blood pressure and heart rate. The as needed medications should be given as well as increasing his oral medications to aggressively control his heart rate and blood pressure as studies have shown a direct correlation between controlling these parameters and 1 and 5-year mortality rate. At this time the patient is not demonstrating any signs of propagation of the dissection or ischemia to end organs. We will continue to follow with the medical team. Subjective Date of service: 04/02/21 Principal diagnosis: Aortic Dissection Interval history: Patient without complaints. No pain at this time. Objective - Constitutional Vitals: Vital Signs - 12hr 04/02/21 04/02/21 04/02/21 03:16 03:30 03:46 Pulse Rate 68 67 65 Respiratory 17 16 16 Rate Blood Pressure 144/65 137/67 137/66 O2 Sat by Pulse 95 94 95 Oximetry 04/02/21 04/02/21 04/02/21 04:00 04:16 04:46 Pulse Rate 64 72 69 Respiratory 15 18 18 Rate Blood Pressure 137/67 141/69 130/71 O2 Sat by Pulse 94 94 Oximetry 04/02/21 04/02/21 04/02/21 05:00 05:16 05:30 Pulse Rate 71 64 65 Respiratory 19 16 15 Rate Blood Pressure 137/74 141/71 140/67 O2 Sat by Pulse Oximetry 04/02/21 04/02/21 04/02/21 05:46 06:00 06:16 Pulse Rate 80 70 64 Respiratory 18 33 H 15 Rate Blood Pressure 136/69 142/86 149/76 O2 Sat by Pulse 96 97 Oximetry 04/02/21 04/02/21 06:30 06:46 Pulse Rate 63 64 Respiratory 16 15 Rate Blood Pressure 150/73 136/67 O2 Sat by Pulse Oximetry General appearance: Present: no acute distress - Respiratory Respiratory effort: normal - Cardiovascular Heart rate: 84 Extremities: pulses intact (Palpable pedal pulses bilaterally, palpable radial pulses bilaterally) - Gastrointestinal General gastrointestinal: Present: soft, non-tender, non-distended - Labs CBC & Chem 7: 04/01/21 03:43 04/02/21 04:48 Labs: Abnormal lab results 04/01/21 04/02/21 Range/Units 15:08 04:48 Sodium 134 L (137-145) mmol/L Potassium 3.4 L 3.5 L (3.6-5.0) mmol/L Glucose 115 H 104 H (75-100) mg/dL Calcium 7.9 L 8.1 L (8.4-10.2) mg/dL Medications & Allergies - Medications Allergies/Adverse Reactions: Allergies No Known Allergies Allergy (Verified 03/29/21 02:38) Home Medications: Home Medications Medication Instructions Recorded Confirmed Last Taken Type Amiodarone [Cordarone 200 MG TAB] 100 mg PO QDAY #30 tablet 04/02/21 Unknown Rx Losartan [Cozaar] 50 mg PO QDAY #30 tablet 04/02/21 Unknown Rx labetaloL [Labetalol 200mg TAB] 200 mg PO TID #90 tablet 04/02/21 Unknown Rx Active Medications: Generic Name Dose Route Start Last Admin Trade Name Freq PRN Reason Stop Dose Admin Acetaminophen 650 mg 03/29/21 04:44 Acetaminophen 325 Mg Tab PO Q4H PRN Pain MILD(1-3)/Fever >100.5/AVILA Albuterol 2.5 mg 03/29/21 04:44 Albuterol 2.5 Mg/3 Ml Nebu IH Q4HRT PRN Shortness Of Breath Albuterol/Ipratropium 1 ampul 03/29/21 08:00 04/02/21 12:08 Ipratropium/Albuterol Sulfate 3 Ml Ampul.Neb IH Not Given Q6HRT BRIAN Alprazolam 1 mg 03/30/21 10:38 04/02/21 12:09 Alprazolam 1 Mg Tab PO 1 mg BID BRIAN Administration Amiodarone HCl 100 mg 04/02/21 14:00 Amiodarone 200 Mg Tab PO QDAY BRIAN Famotidine 20 mg 03/29/21 10:00 04/02/21 12:09 Famotidine 20 Mg/2 Ml Inj IV 20 mg BID BRIAN Administration Hydromorphone HCl 0.5 mg 03/29/21 04:44 04/01/21 19:10 Hydromorphone 1 Mg/1 Ml Inj IV 0.5 mg Q3H PRN Administration Pain , Severe (7-10) Labetalol HCl 200 mg 04/01/21 14:00 04/02/21 12:09 Labetalol 200 Mg Tab PO 200 mg TID BRIAN Administration Labetalol HCl 10 mg 04/01/21 13:28 Labetalol 20 Mg/4 Ml Inj IV Q4H PRN Hypertension Losartan Potassium 50 mg 04/02/21 13:00 Losartan 50 Mg Tab PO QDAY BIRAN Magnesium Citrate 300 ml 04/01/21 13:00 Magnesium Citrate 300 Ml Oral Liqd PO QDAY PRN Bowel Movement Ondansetron HCl 4 mg 03/29/21 04:44 Ondansetron 4 Mg/2 Ml Inj IV Q8H PRN Nausea And Vomiting Oxycodone/Acetaminophen 1 tab 03/29/21 04:44 Oxycodone /Acetaminophen 5-325mg Tab PO Q6H PRN Pain, Moderate (4-6) Potassium Chloride 40 meq 04/02/21 14:00 Potassium Chloride Er 20 Meq Tab PO 04/02/21 18:00 ONCE@1400 BRIAN Sodium Chloride 10 ml 03/29/21 10:00 04/02/21 12:09 Sodium Chloride 0.9% 10 Ml Flush Syringe IV 10 ml BID BRIAN Administration Sodium Chloride 10 ml 03/29/21 04:44 Sodium Chloride 0.9% 10 Ml Flush Syringe IV PRN PRN LINE FLUSH Zolpidem Tartrate 5 mg 03/29/21 18:31 Zolpidem 5 Mg Tab PO QHS PRN Sleep
[2021-04-03] MEDS: IPRATROPIUM/ALBUTEROL SULFATE 3 ML AMPUL.NEB IH SCH (02:40)
[2021-04-03 05:36] LABS: BUN/Creatinine Ratio 14; Blood Urea Nitrogen 13 mg/dL (9-20); Calcium 7.9 mg/dL (8.4-10.2); Hemolysis Index 7
--- NOTE | 2021-04-03 09:54 | Progress Note ---
Assessment and Plan 66-year-old male patient traveling from [place] here was running to the airport to catch the plane and missed it he was upset which must have elevated the blood pressure developed some abdominal pain and back pain, presented to the emergency room, CT abdomen and pelvis revealed type B aortic dissection involving the descending aorta extending to the level of renal arteries. No evidence of vascular compromise, patient was hemodynamically stable, however her uncontrolled blood pressures. Patient was started on esmolol drip to titrate to the target blood pressure of less than 120 and heart rate less than 60. Subsequently evaluated by superintendent system operation and pulmonary critical, medications optimized. Patient then placed on labetalol as there is esmolol shortage, now transition to oral meds. Patient tested negative for COVID-19 at the beginning of his travel Assessment and plan: --Type B thoracoabdominal aortic dissection ; Patient is s/p esmolol drip per protocol and labetalol drip Titrate systolic blood pressure less than 120 and HR <65/min Transition to oral medication, continue to assess need for medications to achieve blood pressure goal vascular surgeon and cardiology, pulmonary critical following CTA chest and CTA abdomen; 03/29/2021 Type B thoracoabdominal aortic dissection beginning in the distal aortic arch and extending into the infrarenal abdominal aorta dissection does not involve the ascending thoracic aorta dissection extends into the origins of the left subclavian artery and the superior mesenteric artery no vessel occlusion or significant stenosis left common iliac aneurysmal dilatation, --Hypertension s/p Esmolol drip and labetalol drip Now on oral medication, continue to adjust to keep BP <120/80 --History of atrial fibrillation; Cardiology following, initiated labetalol and amiodarone, not a candidate for anticoagulation --Abdominal pain Due to aortic dissection now resolved --Nausea & vomiting Resolved ,antiemetics as needed --SIRS: Leukocytosis likely stress-induced Leukocytosis, tachycardia[on admission] Patient has no fever, UA negative Chest x-ray; bilateral atelectasis/no evidence of pneumonia Check blood and urine cultures ,closely monitor --Obesity; BMI 32.9; Patient may need weight reduction when he is medically stable --Left hand swelling, due to IV infiltration, recommended RN to provide ice pack on the area, will continue to monitor --Full code status --DVT prophylaxis, SCD Disposition: Vascular, cardiology, pulmonary evaluation and recommendations noted and appreciated Closely monitor the patient and adjust management as needed Plan of care reviewed with the patient, patient's nurse, patient's over the phone Disposition; transition to oral medications once target heart rate and blood pressures are reached And patient is clinically stable, and discharge when cleared by consultants The high probability of a clinically significant, sudden or life threatening deterioration of the system(s) required my full and direct attention, intervention and personal management. The aggregate critical care time was [45] minutes. This time is in addition to time spent performing reported procedures but includes the following: [x] Data Review and interpretation [x] Patient assessment and monitoring of vital signs [x] Documentation [x] Medication orders and management daily hospital course: 03/30/2021; Cardiology, pulmonary and vascular following the patient, patient is on esmolol drip titrating heart rate to less than 60 and blood pressure less than 120 systolic . Patient is still awaiting ICU bed assignment, currently in the emergency room I called patient Ms. Gutierrez at [phone] [patient's cousin's phonecont]and explained in detail patient's condition, tests and reports, consul tants recommendations, current management, and his progress, discharge planning issues, she had numerous questions, answered all of them, and informed her that the patient will be ready for discharge only when he is medically stable. I encouraged her to call back if she has new concerns. I informed the patient's nurse about my conversation with patient's . 03/31/2021; Esmolol shortage, this morning patient started on labetalol drip per protocol, titrate blood pressure less than 120 systolic and heart rate less than 60/min Low-dose Xanax for anxiety I called patient Ms. Gutierrez at [phone] [patient's cousin's phone ] and discuss again this morning in detail, patient's condition treatment plan Patient's continued progress, his blood pressures and heart rate. She is concerned about the travel plans, she had numerous questions Answered all of them. Also informed that patient is not stable for discharge and travel at this point. 04/01/21: Continue to adjust BP meds, no need for TEVAR per vascular, weaned off from labetalol drip today, initiated on labetalol 200 mg 3 times a day, monitor off labetalol drip, continue to monitor BP. Patient denies any chest pain shortness of breath or abdominal pain. 04/02/21: cont to adjust medications for BP <120/80, added losartan and amioderone. Discussed briefly with patient, patient and his friend at the bedside. Also called patient earlier to provide updates. 04/03/21: BP still not achieved is goal which is <120/80. Increase losartan and amiodarone dose, will also add amlodipine. Continue to follow clinically, updated patient's . Subjective Date of service: 04/03/21 Principal diagnosis: Aortic Dissection Interval history: Patient seen and examined. Medical records and medication list reviewed. No acute event overnight noted by the RN. Patient denies any chest pain or difficulty breathing. Patient is tolerating diet. Discussed plan of care at bedside with patient. Objective - Exam Narrative Exam: GENERAL: well-developed and well-nourished white male lying on bed appeared to be in no discomfort. HEENT: Normocephalic. Atraumatic. No conjunctival congestion or icterus. Patient has moist mucous membranes. NECK: Supple. Trachea midline. CHEST/LUNGS: Clear to auscultated bilaterally, breathing nonlabored. No wheezes crackles or rhonchi. HEART/CARDIOVASCULAR: Regular in rate and rhythm. S1 and S2 positive. ABDOMEN: Abdomen is soft, nontender. Patient has normal bowel sounds. SKIN: There is no rash. Warm and dry. NEURO: No focal motor deficit. Follows command. MUSCULOSKELETAL: No joint effusion or tenderness. EXTRIMITY: No edema, no cyanosis or clubbing. PSYCH: Cooperative. - Constitutional Vitals: Vital Signs - 12hr 04/02/21 04/02/21 04/02/21 22:00 22:21 23:00 Temperature Pulse Rate 70 74 68 Pulse Rate [ From Monitor] Respiratory 17 18 Rate Blood Pressure 161/80 166/85 163/85 O2 Sat by Pulse 94 96 Oximetry 04/03/21 04/03/21 04/03/21 00:00 00:02 01:00 Temperature Pulse Rate 72 70 69 Pulse Rate [ 72 From Monitor] Respiratory 19 18 18 Rate Blood Pressure 139/71 139/71 125/67 O2 Sat by Pulse 95 95 98 Oximetry 04/03/21 04/03/21 04/03/21 02:00 03:00 03:11 Temperature Pulse Rate 67 69 70 Pulse Rate [ From Monitor] Respiratory 16 15 Rate Blood Pressure 153/76 137/73 137/73 O2 Sat by Pulse 97 95 Oximetry 04/03/21 04/03/21 04/03/21 04:00 04:30 04:31 Temperature 99.9 F H Pulse Rate 67 72 Pulse Rate [ From Monitor] Respiratory 16 19 Rate Blood Pressure 145/80 152/80 O2 Sat by Pulse 95 96 Oximetry 04/03/21 04/03/21 04/03/21 05:00 05:30 06:00 Temperature Pulse Rate 69 72 65 Pulse Rate [ From Monitor] Respiratory 17 14 15 Rate Blood Pressure 150/81 170/109 154/78 O2 Sat by Pulse 96 94 96 Oximetry 04/03/21 04/03/21 04/03/21 06:30 07:00 07:30 Temperature Pulse Rate 68 71 74 Pulse Rate [ From Monitor] Respiratory 15 16 17 Rate Blood Pressure 148/78 151/76 149/84 O2 Sat by Pulse 96 95 95 Oximetry 04/03/21 04/03/21 08:00 08:23 Temperature Pulse Rate 80 78 Pulse Rate [ 82 From Monitor] Respiratory 18 Rate Blood Pressure 134/76 132/81 O2 Sat by Pulse 94 Oximetry - Labs CBC & Chem 7: 04/01/21 03:43 04/05/21 05:29 Labs: Abnormal lab results 04/03/21 Range/Units 04:46 Calcium 7.9 L (8.4-10.2) mg/dL
[2021-04-03] MEDS: LOSARTAN 50 MG TAB PO SCH (10:31)
[2021-04-03] MEDS: FAMOTIDINE 20 MG/2 ML INJ IV SCH ×2 (10:31→22:27)
[2021-04-03] MEDS: AMIODARONE 200 MG TAB PO SCH ×2 (10:32→22:27)
[2021-04-03] MEDS: ALPRAZolam 1 MG TAB PO SCH ×2 (10:33→22:27)
[2021-04-03] MEDS ORDERED: amLODIPine 10 MG TAB PO SCH (11:00)
--- NOTE | 2021-04-03 11:04 | Progress Note ---
Assessment and Plan Patient with a history of previously uncontrolled hypertension who presented with a type B dissection. Patient will need excellent control of his blood pressure and heart rate prior to discharge. However, once these are controlled with oral medications the patient may be discharged home. He is a [place] citizen and resides in [place] and is here on business. 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 He will need to follow-up with his manager of program back home following discharge. From a vascular point of view, once the patient's blood pressure and hypertension are controlled he may be discharged. Subjective Date of service: 04/03/21 Principal diagnosis: Aortic Dissection Interval history: Patient with a history of hypertension that he describes as previously being somewhat uncontrolled. He presents with type B aortic dissection. No complaints of any chest pain. Objective - Constitutional Vitals: Vital Signs - 12hr 04/03/21 04/03/21 04/03/21 00:00 00:02 01:00 Temperature Pulse Rate 72 70 69 Pulse Rate [ 72 From Monitor] Respiratory 19 18 18 Rate Blood Pressure 139/71 139/71 125/67 O2 Sat by Pulse 95 95 98 Oximetry 04/03/21 04/03/21 04/03/21 02:00 03:00 03:11 Temperature Pulse Rate 67 69 70 Pulse Rate [ From Monitor] Respiratory 16 15 Rate Blood Pressure 153/76 137/73 137/73 O2 Sat by Pulse 97 95 Oximetry 04/03/21 04/03/21 04/03/21 04:00 04:30 04:31 Temperature 99.9 F H Pulse Rate 67 72 Pulse Rate [ From Monitor] Respiratory 16 19 Rate Blood Pressure 145/80 152/80 O2 Sat by Pulse 95 96 Oximetry 04/03/21 04/03/21 04/03/21 05:00 05:30 06:00 Temperature Pulse Rate 69 72 65 Pulse Rate [ From Monitor] Respiratory 17 14 15 Rate Blood Pressure 150/81 170/109 154/78 O2 Sat by Pulse 96 94 96 Oximetry 04/03/21 04/03/21 04/03/21 06:30 07:00 07:30 Temperature Pulse Rate 68 71 74 Pulse Rate [ From Monitor] Respiratory 15 16 17 Rate Blood Pressure 148/78 151/76 149/84 O2 Sat by Pulse 96 95 95 Oximetry 04/03/21 04/03/21 04/03/21 08:00 08:23 08:30 Temperature Pulse Rate 80 78 79 Pulse Rate [ 82 From Monitor] Respiratory 18 17 Rate Blood Pressure 134/76 132/81 132/81 O2 Sat by Pulse 94 92 Oximetry 04/03/21 04/03/21 04/03/21 09:00 09:30 10:00 Temperature Pulse Rate 80 76 74 Pulse Rate [ From Monitor] Respiratory 21 18 16 Rate Blood Pressure 141/77 142/75 154/80 O2 Sat by Pulse 92 96 96 Oximetry 04/03/21 04/03/21 04/03/21 10:30 10:31 10:33 Temperature Pulse Rate 67 68 68 Pulse Rate [ From Monitor] Respiratory 16 Rate Blood Pressure 150/82 150/82 150/82 O2 Sat by Pulse 96 Oximetry General appearance: Present: no acute distress - EENT Eyes: EOM intact ENT: hearing intact - Neck Neck: supple, normal ROM - Respiratory Respiratory effort: normal - Gastrointestinal General gastrointestinal: Present: deferred Rectal Exam: deferred - Genitourinary Male genitourinary: deferred - Psychiatric Psychiatric: appropriate mood/affect, cooperative - Labs CBC & Chem 7: 04/01/21 03:43 04/03/21 04:46 Labs: Abnormal lab results 04/03/21 Range/Units 04:46 Calcium 7.9 L (8.4-10.2) mg/dL Medications & Allergies - Medications Allergies/Adverse Reactions: Allergies No Known Allergies Allergy (Verified 03/29/21 02:38) Home Medications: Home Medications Medication Instructions Recorded Confirmed Last Taken Type Amiodarone [Cordarone 200 MG TAB] 100 mg PO QDAY #30 tablet 04/02/21 Unknown Rx Losartan [Cozaar] 50 mg PO QDAY #30 tablet 04/02/21 Unknown Rx labetaloL [Labetalol 200mg TAB] 200 mg PO TID #90 tablet 04/02/21 Unknown Rx Active Medications: Generic Name Dose Route Start Last Admin Trade Name Freq PRN Reason Stop Dose Admin Acetaminophen 650 mg 03/29/21 04:44 Acetaminophen 325 Mg Tab PO Q4H PRN Pain MILD(1-3)/Fever >100.5/AVILA Albuterol 2.5 mg 03/29/21 04:44 Albuterol 2.5 Mg/3 Ml Nebu IH Q4HRT PRN Shortness Of Breath Albuterol/Ipratropium 1 ampul 03/29/21 08:00 09/30/21 02:40 Ipratropium/Albuterol Sulfate 3 Ml Ampul.Neb IH Not Given Q6HRT BRIAN Alprazolam 1 mg 03/30/21 10:38 04/03/21 10:33 Alprazolam 1 Mg Tab PO 1 mg BID BRIAN Administration Amiodarone HCl 100 mg 04/03/21 10:00 04/03/21 10:32 Amiodarone 200 Mg Tab PO 100 mg BID BRIAN Administration Amlodipine Besylate 10 mg 04/03/21 11:00 04/03/21 10:33 Amlodipine 10 Mg Tab PO 10 mg QDAY BRIAN Administration Famotidine 20 mg 03/29/21 10:00 04/03/21 10:31 Famotidine 20 Mg/2 Ml Inj IV 20 mg BID BRIAN Administration Hydromorphone HCl 0.5 mg 03/29/21 04:44 04/01/21 19:10 Hydromorphone 1 Mg/1 Ml Inj IV 0.5 mg Q3H PRN Administration Pain , Severe (7-10) Labetalol HCl 200 mg 04/01/21 14:00 04/03/21 08:23 Labetalol 200 Mg Tab PO 200 mg TID BRIAN Administration Labetalol HCl 10 mg 04/01/21 13:28 04/03/21 03:11 Labetalol 20 Mg/4 Ml Inj IV 10 mg Q4H PRN Administration Hypertension Losartan Potassium 100 mg 04/03/21 10:00 04/03/21 10:31 Losartan 50 Mg Tab PO 100 mg QDAY BRIAN Administration Magnesium Citrate 300 ml 04/01/21 13:00 Magnesium Citrate 300 Ml Oral Liqd PO QDAY PRN Bowel Movement Ondansetron HCl 4 mg 03/29/21 04:44 Ondansetron 4 Mg/2 Ml Inj IV Q8H PRN Nausea And Vomiting Oxycodone/Acetaminophen 1 tab 03/29/21 04:44 Oxycodone /Acetaminophen 5-325mg Tab PO Q6H PRN Pain, Moderate (4-6) Sodium Chloride 10 ml 03/29/21 10:00 04/03/21 10:33 Sodium Chloride 0.9% 10 Ml Flush Syringe IV 10 ml BID BRIAN Administration Sodium Chloride 10 ml 03/29/21 04:44 Sodium Chloride 0.9% 10 Ml Flush Syringe IV PRN PRN LINE FLUSH Zolpidem Tartrate 5 mg 03/29/21 18:31 Zolpidem 5 Mg Tab PO QHS PRN Sleep
[2021-04-04 05:37] LABS: BUN/Creatinine Ratio 14; Blood Urea Nitrogen 13 mg/dL (9-20); Calcium 8.5 mg/dL (8.4-10.2); Hemolysis Index 4
[2021-04-04] MEDS: IPRATROPIUM/ALBUTEROL SULFATE 3 ML AMPUL.NEB IH SCH ×4 (07:28→21:17)
--- NOTE | 2021-04-04 10:15 | Progress Note ---
Assessment and Plan 66 y/o male with aortic dissection type B, secondary to uncontrolled hypertension and tachycardia. 04/04/21: Close to being stable for discharge. Will defer to primary team. can be down graded from step down. Will sign off. Call if questions. 04/02/21: Working to get patient upstairs to better manage HR and BP. Keep PRN labetalol present. 04/01/21: Suggest increasing oral labetalol therapy and educate nursing that need for lower BP and HR. His evening dose of labetalol was not given. Not sure if a physician was contacted but the rate on the drip could have been lowered to accommodate giving oral meds. He has to be weaned off the drip in order to be discharged and that will require oral therapy. 1. Cards consulted and suggested esomolol drip 2. Titrate drip to parameters as listed by cards 3. Would suggest adding oral therapy now and titrating drip down to achieve desired heart rate and bp. If waiting until drip does it by itself, maybe difficult to control without the oral therapy already on board. 4. Once off drip can be downgraded from ICU status. Subjective Date of service: 04/04/21 Principal diagnosis: Aortic Dissection Interval history: BP and heart rate both better with the increase in BB. CCB stopped as it is contraindicated in this disease. Objective - Constitutional Vitals: Vital Signs - 12hr 04/03/21 04/03/21 04/04/21 23:00 23:50 00:00 Temperature Pulse Rate 76 69 69 Respiratory 16 17 Rate Blood Pressure 138/75 143/76 143/76 Blood Pressure [Left] O2 Sat by Pulse 96 96 Oximetry 04/04/21 04/04/21 04/04/21 01:00 01:30 02:00 Temperature Pulse Rate 67 71 76 Respiratory 16 16 Rate Blood Pressure 143/76 133/68 Blood Pressure [Left] O2 Sat by Pulse 95 89 Oximetry 04/04/21 04/04/21 04/04/21 03:00 03:45 04:00 Temperature 96.5 F L Pulse Rate 75 66 67 Respiratory 18 17 Rate Blood Pressure 118/77 132/68 123/69 Blood Pressure [Left] O2 Sat by Pulse 92 95 Oximetry 04/04/21 04/04/21 04/04/21 05:00 06:00 07:00 Temperature Pulse Rate 67 88 92 H Respiratory 16 14 15 Rate Blood Pressure 123/75 135/68 116/83 Blood Pressure [Left] O2 Sat by Pulse 94 91 93 Oximetry 04/04/21 04/04/21 04/04/21 08:14 08:34 08:36 Temperature Pulse Rate 99 H 99 H Respiratory 19 18 Rate Blood Pressure 115/54 Blood Pressure 118/58 [Left] O2 Sat by Pulse 94 94 Oximetry - Labs CBC & Chem 7: 04/01/21 03:43 04/04/21 04:38 Labs: Abnormal lab results 04/04/21 Range/Units 04:38 Glucose 112 H (75-100) mg/dL Medications & Allergies - Medications Allergies/Adverse Reactions: Allergies No Known Allergies Allergy (Verified 03/29/21 02:38) Home Medications: Home Medications Medication Instructions Recorded Confirmed Last Taken Type Amiodarone [Cordarone 200 MG TAB] 100 mg PO QDAY #30 tablet 04/02/21 Unknown Rx Losartan [Cozaar] 50 mg PO QDAY #30 tablet 04/02/21 Unknown Rx labetaloL [Labetalol 200mg TAB] 200 mg PO TID #90 tablet 04/02/21 Unknown Rx Active Medications: Generic Name Dose Route Start Last Admin Trade Name Freq PRN Reason Stop Dose Admin Acetaminophen 650 mg 03/29/21 04:44 Acetaminophen 325 Mg Tab PO Q4H PRN Pain MILD(1-3)/Fever >100.5/AVILA Albuterol 2.5 mg 03/29/21 04:44 Albuterol 2.5 Mg/3 Ml Nebu IH Q4HRT PRN Shortness Of Breath Albuterol/Ipratropium 1 ampul 03/29/21 08:00 04/04/21 07:30 Ipratropium/Albuterol Sulfate 3 Ml Ampul.Neb IH Not Given Q6HRT BRIAN Alprazolam 1 mg 03/30/21 10:38 04/03/21 22:27 Alprazolam 1 Mg Tab PO 1 mg BID BRIAN Administration Amiodarone HCl 100 mg 04/03/21 10:00 04/03/21 22:27 Amiodarone 200 Mg Tab PO 100 mg BID BRIAN Administration Famotidine 20 mg 04/04/21 10:00 Famotidine 20 Mg Tab PO BID BRIAN Hydromorphone HCl 0.5 mg 03/29/21 04:44 04/01/21 19:10 Hydromorphone 1 Mg/1 Ml Inj IV 0.5 mg Q3H PRN Administration Pain , Severe (7-10) Labetalol HCl 10 mg 04/01/21 13:28 04/04/21 03:45 Labetalol 20 Mg/4 Ml Inj IV 10 mg Q4H PRN Administration Hypertension Labetalol HCl 300 mg 04/04/21 14:00 Labetalol 100 Mg Tab PO TID BRIAN Losartan Potassium 100 mg 04/03/21 10:00 04/03/21 10:31 Losartan 50 Mg Tab PO 100 mg QDAY BRIAN Administration Magnesium Citrate 300 ml 04/01/21 13:00 Magnesium Citrate 300 Ml Oral Liqd PO QDAY PRN Bowel Movement Ondansetron HCl 4 mg 03/29/21 04:44 Ondansetron 4 Mg/2 Ml Inj IV Q8H PRN Nausea And Vomiting Oxycodone/Acetaminophen 1 tab 03/29/21 04:44 Oxycodone /Acetaminophen 5-325mg Tab PO Q6H PRN Pain, Moderate (4-6) Sodium Chloride 10 ml 03/29/21 10:00 04/03/21 22:27 Sodium Chloride 0.9% 10 Ml Flush Syringe IV 10 ml BID BRIAN Administration Sodium Chloride 10 ml 03/29/21 04:44 Sodium Chloride 0.9% 10 Ml Flush Syringe IV PRN PRN LINE FLUSH Zolpidem Tartrate 5 mg 03/29/21 18:31 Zolpidem 5 Mg Tab PO QHS PRN Sleep
[2021-04-04] MEDS: LOSARTAN 50 MG TAB PO SCH (11:05)
[2021-04-04] MEDS: ALPRAZolam 1 MG TAB PO SCH ×2 (11:05→20:57)
[2021-04-04] MEDS: FAMOTIDINE 20 MG TAB PO SCH ×2 (11:05→20:57)
[2021-04-04] MEDS: AMIODARONE 200 MG TAB PO SCH ×2 (11:05→20:57)
[2021-04-05 06:20] LABS: BUN/Creatinine Ratio 15; Blood Urea Nitrogen 16 mg/dL (9-20); Calcium 8.3 mg/dL (8.4-10.2); Hemolysis Index 6
--- NOTE | 2021-04-05 07:37 | Progress Note ---
Assessment and Plan Assessment and Plan Assessment and plan: --Type B thoracoabdominal aortic dissection ; Patient is s/p esmolol drip per protocol and labetalol drip Patient is stable off the esmolol drip Blood pressure is well controlled Continue oral labetalol CTA chest and CTA abdomen; 03/29/2021 Type B thoracoabdominal aortic dissection beginning in the distal aortic arch and extending into the infrarenal abdominal aorta dissection does not involve the ascending thoracic aorta dissection extends into the origins of the left subclavian artery and the superior mesenteric artery no vessel occlusion or sign ificant stenosis left common iliac aneurysmal dilatation, --Hypertension s/p Esmolol drip and labetalol drip Now on oral medication, continue to adjust to keep BP <120/80 --History of atrial fibrillation; Cardiology following, initiated labetalol and amiodarone, not a candidate for anticoagulation --Abdominal pain Due to aortic dissection now resolved --Nausea & vomiting Resolved ,antiemetics as needed --SIRS: Leukocytosis likely stress-induced Leukocytosis, tachycardia[on admission] Patient has no fever, UA negative Chest x-ray; bilateral atelectasis/no evidence of pneumonia Check blood and urine cultures ,closely monitor --Obesity; BMI 32.9; Patient may need weight reduction when he is medically stable --Left hand swelling, due to IV infiltration, recommended RN to provide ice pack on the area, will continue to monitor --Full code status --DVT prophylaxis, SCD Disposition: Vascular, cardiology, pulmonary evaluation and recommendations noted and appreciated Closely monitor the patient and adjust management as needed Plan of care reviewed with the patient, patient's nurse, patient's over the phone Disposition; transition to oral medications once target heart rate and blood pressures are reached And patient is clinically stable, and discharge when cleared by consultants Patient is stable and downgraded to telemetry The high probability of a clinically significant, sudden or life threatening deterioration of the system(s) required my full and direct attention, intervention and personal management. The aggregate critical care time was [45] minutes. This time is in addition to time spent performing reported procedures but includes the following: [x] Data Review and interpretation [x] Patient assessment and monitoring of vital signs [x] Documentation [x] Medication orders and management Subjective Date of service: 04/04/21 Principal diagnosis: Aortic Dissection Interval history: 66-year-old male patient traveling from [place] here was running to the airport to catch the plane and missed it he was upset which must have elevated the blood pressure developed some abdominal pain and back pain, presented to the emergency room, CT abdomen and pelvis revealed type B aortic dissection involving the descending aorta extending to the level of renal arteries. No evidence of vascular compromise, patient was hemodynamically stable, however her uncontrolled blood pressures. Patient was started on esmolol drip to titrate to the target blood pressure of less than 120 and heart rate less than 60. Subsequently evaluated by pathology specialist and pulmonary critical, medications optimized. Patient then placed on labetalol as there is esmolol shortage, now transition to oral meds. Patient tested negative for COVID-19 at the beginning of his travel daily hospital course: 03/30/2021; Cardiology, pulmonary and vascular following the patient, patient is on esmolol drip titrating heart rate to less than 60 and blood pressure less than 120 systolic . Patient is still awaiting ICU bed assignment, currently in the emergency room I called patient Ms. Gutierrez at [phone] [patient's cousin's phonecont]and explained in detail patient's condition, tests and reports, consultants recommendations, current management, and his progress, discharge planning issues, she had numerous questions, answered all of them, and informed her that the patient will be ready for discharge only when he is medically stable. I encouraged her to call back if she has new concerns. I informed the patient's nurse about my conversation with patient's . 03/31/2021; Esmolol shortage, this morning patient started on labetalol drip per protocol, titrate blood pressure less than 120 systolic and heart rate less than 60/min Low-dose Xanax for anxiety I called patient Ms. Gutierrez at [phone] [patient's cousin's phone ] and discuss again this morning in detail, patient's condition treatment plan Patient's continued progress, his blood pressures and heart rate. She is concerned about the travel plans, she had numerous questions Answered all of them. Also informed that patient is not stable for discharge and travel at this point. 04/01/21: Continue to adjust BP meds, no need for TEVAR per vascular, weaned off from labetalol drip today, initiated on labetalol 200 mg 3 times a day, monitor off labetalol drip, continue to monitor BP. Patient denies any chest pain shortness of breath or abdominal pain. 04/02/21: cont to adjust medications for BP <120/80, added losartan and amioderone. Discussed briefly with patient, patient and his friend at the bedside. Also called patient earlier to provide updates. 04/03/21: BP still not achieved is goal which is <120/80. Increase losartan and amiodarone dose, will also add amlodipine. Continue to follow clinically, updated patient's . 04/04/2021 Blood pressure well controlled Off esmolol drip On labetalol I had extensive discussion with and friend about discharge plans arranging for a transfer from [place] to [facility] through their insurance If consultants agree will discharge the patient home Objective - Constitutional Vitals: Vital Signs - 12hr 04/04/21 04/04/21 04/04/21 19:57 20:00 20:57 Temperature 98.2 F Pulse Rate 36 L 80 89 Respiratory 18 Rate Blood Pressure 126/77 117/71 O2 Sat by Pulse 97 89 Oximetry 04/04/21 04/04/21 04/05/21 21:16 23:21 04:04 Temperature 98.4 F 98.2 F Pulse Rate 74 78 Respiratory 17 18 Rate Blood Pressure 105/64 131/77 O2 Sat by Pulse 90 91 89 Oximetry - Labs CBC & Chem 7: 04/01/21 03:43 04/05/21 05:29 Labs: Abnormal lab results 04/05/21 Range/Units 05:29 Potassium 3.5 L (3.6-5.0) mmol/L Carbon Dioxide 20 L D (22-30) mmol/L Glucose 106 H (75-100) mg/dL Calcium 8.3 L (8.4-10.2) mg/dL
[2021-04-05] MEDS: IPRATROPIUM/ALBUTEROL SULFATE 3 ML AMPUL.NEB IH SCH ×2 (08:14)
[2021-04-05] MEDS ORDERED: ALBUTEROL 2.5 MG/3 ML NEBU IH PRN (09:00)
[2021-04-05] MEDS: AMIODARONE 200 MG TAB PO SCH (10:57)
[2021-04-05] MEDS ORDERED: AMIODARONE 200 MG TAB PO SCH (11:00)
[2021-04-05] MEDS: ALPRAZolam 1 MG TAB PO SCH (11:33)
[2021-04-05] MEDS: FAMOTIDINE 20 MG TAB PO SCH (11:33)
[2021-04-05] MEDS: LOSARTAN 50 MG TAB PO SCH (11:33)
[2021-04-05 16:30] VITALS: BP 143/72
--- NOTE | 2021-04-07 14:19 | Electrocardiograph Report ---
[facility] Test Date: 2021-04-02 Test Time: 11:29:49 Pat Name: VICENTE ARCHULETA Department: Room: A487 Gender: M Field Geologist: KARINA : 1955 Requested By: LEONELA GALARZA Order Number: [id number] Reading MD: Leonela Galarza Measurements Intervals [place] Rate: 66 P: 80 MS: 182 QRS: 58 QRSD: 104 T: 82 QT: QTc: 0 Interpretive Statements Sinus rhythm No previous ECG available for comparison Electronically Signed On 04-07-2021 14:18:56 EDT by Leonela Galarza
== END 2021-04-05 18:40 | disposition home or self-care (01) | DRG 300 ==
LOC: ED 01:33 → SUATTDRO 01:33 → CC1 03-30 01:11 → IMCU 04-02 14:24 → 4A 04-04 15:10
PROVIDERS: ADMIT Internal Medicine; ATTEND Internal Medicine
DX: I71.03 Dissection of thoracoabdominal aorta (principal); R65.10 Systemic inflammatory response syndrome (SIRS) of non-infectious origin without acute organ dysfunction; I48.92 Unspecified atrial flutter; I16.1 Hypertensive emergency; E66.9 Obesity, unspecified; Z68.32 Body mass index [BMI] 32.0-32.9, adult; I48.0 Paroxysmal atrial fibrillation; Z20.822 Contact with and (suspected) exposure to COVID-19; I10 Essential (primary) hypertension
CPT/HCPCS: 36415; 71045; 71275; 74175; 74177; 80048; 80076; 81001; 83690; 83735; 85025; 87040; 87086; 93005; 93306; 94640; 94644; 94760; G0378; J1170; J2405; Q9967; U0003